=== PATIENT | female | born 2000 | race Caucasian/White ===

== ENCOUNTER 2020-03-02 19:17 | Emergency (ER) | payer OTHER, MEDICAID, SELFPAY ==
--- NOTE | ~2020-03-02 | XR_ITS ---
EXAMINATION: XR foot LT min 3V EXAM DATE: 03/02/2020 19:48 INDICATION: Initial encounter following injury, with pain of the left foot. Tripped. TECHNIQUE: Left foot dorsoplantar, lateral and oblique projections obtained and reviewed. There is n o prior study for comparison. FINDINGS: There is lucency through the base of the left fifth metatarsal bone which could be an acut e closed posttraumatic avulsion type fracture. This finding has been indicated, marked on the examina tion for review, clinical correlation. There is overlying soft tissue swelling. No other suspicious f indings. IMPRESSION: Probable left fifth metatarsal base nondisplaced avulsion fracture. Reviewed, dictated and finalized at location G. IMPRESSION: Probable left fifth metatarsal base nondisplaced avulsion fracture .
[2020-03-02 19:19] VITALS: BP 154/87; PULSE 106; RESP 18; TEMP 36.2; O2SAT 100
--- NOTE | 2020-03-02 19:34 | ED.LOWEXIN ---
HPI - Extremity Injury (Lower) General Chief Complaint: Extremity Injury, Lower Stated Complaint: L Foot Time Seen by Provider: 03/02/20 19:23 Source: patient Mode of arrival: wheelchair Limitations: no limitations History of Present Illness HPI Narrative: Patient is a 19-year-old female who presents for evaluation of left foot pain. Patient states she was [id number] when she tripped over a rock, falling and landing on her left foot tucked under her bottom. Patient with immediate pain on the lateral aspect of the left foot at a place where she has previously broken a bone in her foot. Patient denies numbness. She reports inability to bear weight due to pain. Pain is dull, aching in nature, worse with movement. No toe pain. No knee pain or hip pain. No head trauma or loss of consciousness. Related Data Home Medications Medication Instructions Recorded Confirmed sertraline [Zoloft] 20 mg PO DAILY 03/02/20 Allergies Allergy/AdvReac Type Severity Reaction Status Date / Time ondansetron [From Zofran] AdvReac Nausea and Verified 03/02/20 19:25 Vomiting Review of Systems Review of Systems: Narrative: CONSTITUTIONAL: Denies fever CARDIOVASCULAR: Denies chest pain RESPIRATORY: Denies cough or dyspnea. GASTROINTESTINAL: Denies abdominal pain SKIN: Abrasion to right knee MUSCULOSKELETAL: Denies back pain, reports left foot pain NEUROLOGIC: Denies headache PMFSH Past Medical History Medical History (Updated 03/03/20 @ 00:00 by Background Daemon) No pertinent past medical history Surgical History Surgical History (Updated 03/02/20 @ 19:36 by Lisbeth Julio MD) H/O anterior cruciate ligament surgery Social History Social History (Updated 03/02/20 @ 19:37 by Lisbeth Julio MD) Smoking status: Never smoker Alcohol intake: never Substance use: never Living arrangements: with family Gender identity (if verbalized by the patient): Female Exam Narrative: Exam Narrative: GENERAL: Awake, alert, conversant HEAD: Normocephalic, atraumatic. EYES: PERRLA and EOMI. ENT: Nares clear, no rhinorrhea or epistaxis. Mucous membranes moist. NECK: Supple. CHEST: No respiratory distress, breathing even and non labored HEART: Regular rate, sinus rhythm ABDOMEN:Non distended, non tender EXTREMITIES: Normal range of motion in the ankle and forefoot. Tenderness to palpation of the lateral aspect of the fifth metatarsal with deformity present. No ecchymosis. DP pulse 2+. SKIN: Warm, dry, no rash. NEURO:No focal deficits. Alert and oriented x3 Course Vital Signs Vital signs: Vital Signs Temperature 36.2 C L 03/02/20 19:19 Pulse Rate 106 H 03/02/20 19:19 Respiratory Rate 18 03/02/20 19:19 Blood Pressure 154/87 H 03/02/20 19:19 Pulse Oximetry 100 03/02/20 19:19 Temperature 36.2 C L 03/02/20 19:19 Pulse Rate 72 03/02/20 20:31 Respiratory Rate 18 03/02/20 20:31 Blood Pressure 122/77 03/02/20 20:31 Pulse Oximetry 98 03/02/20 20:31 Procedures Orthopedic Splinting/Casting Injury #1: Splinting/Casting Date: 03/02/20 Splinting/Casting Time: 20:02 Side: left Lower Extremity Injury Location: foot Lower Extremity Immobilizer: posterior splint Splint: customized in ED OCL: posterior Pre-Procedure Neuro Vascular Exam: normal Post-Procedure Neuro Vascular Exam: normal Other Orthopedic Equipment: crutches MDM - Extremity Injury (Lower) MDM Narrative Medical decision making narrative: Patient presented with pain and trauma to the left foot, mild deformity, neurovascularly intact. Compartments are soft. Patient found to have a left fifth metatarsal base fracture on imaging. Patient will be splinted given degree of pain, want patient to remain nonweightbearing. She was given crutches. She is given prescriptions for ibuprofen, Tylenol and orthopedic follow-up. She was then discharged home in stable conditio
--- NOTE | 2020-03-02 20:24 | PC.NURSE ---
OCL applied per pet care technician. Pt tolerated well. PMS intact.
[2020-03-02] MEDS: IBUPROFEN 400 MG TABLET PO (20:28)
[2020-03-02 20:31] VITALS: BP 122/77; PULSE 72; RESP 18; O2SAT 98
== END 2020-03-02 20:32 | disposition home or self-care (01) ==
PROVIDERS: Emergency Provider Emergency Medicine
DX: S92.355A Nondisplaced fracture of fifth metatarsal bone, left foot, initial encounter for closed fracture (principal); W18.09XA Striking against other object with subsequent fall, initial encounter; Y93.73 Activity, racquet and hand sports
CPT/HCPCS: 29515; 73630; 99284; A9270

== ENCOUNTER 2020-08-05 17:09 | Emergency (ER) | payer OTHER, MEDICAID, SELFPAY ==
--- NOTE | ~2020-08-05 | XR_ITS ---
EXAMINATION: XR knee RT min 4V EXAM DATE: 08/05/2020 18:04 INDICATION: Right knee pain medially. TECHNIQUE: Right knee frontal, crosstable lateral, orthogonal oblique projections for interpretation . There is no prior study for comparison. FINDINGS: No evidence osteochondral defect or joint body in the right knee joint. There are no acut e fractures or dislocations identified. There is no subcutaneous gas. There is small joint effusion . There are surgical changes from prior cruciate ligament repair. IMPRESSION: 1. Right knee exam without acute osseous findings. 2. Small joint effusion. 3. Prior cruciate ligament repair. Reviewed, dictated and finalized at location A.
[2020-08-05 17:25] VITALS: BP 140/80; PULSE 103; RESP 18; TEMP 36.4; O2SAT 99
--- NOTE | 2020-08-05 18:26 | ED.GENADULT ---
HPI - General Adult General Chief complaint: Extremity Injury, Lower <Jr Villela PA-C - Last Filed: 08/05/20 18:30> Stated complaint: right knee injury <Jr Villela PA-C - Last Filed: 08/05/20 18:30> Time Seen by Provider: 08/05/20 17:39 <Jr Villela PA-C - Last Filed: 08/05/20 18:30> Source: patient <Jr Villela PA-C - Last Filed: 08/05/20 18:30> Mode of arrival: ambulatory <Jr Villela PA-C - Last Filed: 08/05/20 18:30> Limitations: no limitations <Jr Villela PA-C - Last Filed: 08/05/20 18:30> History of Present Illness HPI narrative: Patient is a 20-year-old female who presents to emergency department with right medial knee pain status post twisting the knee awkwardly this week and has since had medial aching pain worse with weightbearing and activity history of orthopedic surgery in this knee patient has not been seen for this complaint <Jr Villela PA-C - Last Filed: 08/05/20 18:30> Related Data Allergies/adverse reactions: Allergies Allergy/AdvReac Type Severity Reaction Status Date / Time ondansetron [From Zofran] AdvReac Nausea and Verified 08/05/20 17:38 Vomiting <Jr Villela PA-C - Last Filed: 08/05/20 18:30> Review of Systems Review of Systems: All systems reviewed & are unremarkable except as noted in HPI and below <Jr Villela PA-C - Last Filed: 08/05/20 18:30> [facility] Past Medical History Medical History: Medical History (Updated 08/05/20 @ 18:30 by Jr Villela PA-C) No pertinent past medical history Right ACL tear <Jr Villela PA-C - Last Filed: 08/05/20 18:30> Surgical History Surgical History: Surgical History H/O anterior cruciate ligament surgery <Jr Villela PA-C - Last Filed: 08/05/20 18:30> Family History Family History: Family History Father Cancer Grandparent Cancer Hypertension <Jr Villela PA-C - Last Filed: 08/05/20 18:30> Social History Social History: Social History Smoking status: Never smoker Alcohol intake: never Substance use: never Gender identity (if verbalized by the patient): Female <Jr Villela PA-C - Last Filed: 08/05/20 18:30> Exam Narrative: Exam Narrative: GENERAL: Well-appearing, well-nourished, and in no acute distress. HEAD: Normocephalic, atraumatic. EYES: PERRLA and EOMI. ENT: Nares clear, no rhinorrhea or epistaxis. Mucous membranes moist. EXTREMITIES: Normal range of motion. No edema. Tenderness to the anterior medial aspect right knee no other deformities noted SKIN: Warm, dry, no rash. NEURO: No focal deficits. Alert and oriented x3. Neurovascularly intact PSYCH: Normal mood and affect. <Jr Villela PA-C - Last Filed: 08/05/20 18:30> Course Course Emergency Course: Patient in the room in no distress at this time aware of case findings treatment plan and diagnosis agreeing to follow-up as directed will be referred to orthopedic surgery for further evaluation patient notes that she has crutches at home <Jr Villela PA-C - Last Filed: 08/05/20 18:30> Vital Signs Vital signs: Vital Signs Temperature 36.4 C 08/05/20 17:25 Pulse Rate 103 H 08/05/20 17:25 Respiratory Rate 18 08/05/20 17:25 Blood Pressure 140/80 08/05/20 17:25 Pulse Oximetry 99 08/05/20 17:25 Temperature 36.4 C 08/05/20 17:25 Pulse Rate 103 H 08/05/20 17:25 Respiratory Rate 18 08/05/20 17:25 Blood Pressure 140/80 08/05/20 17:25 Pulse Oximetry 99 08/05/20 17:25 <Jr Villela PA-C - Last Filed: 08/05/20 18:30> Vital Signs Temperature 36.4 C 08/05/20 17:25 Pulse Rate 103 H 08/05/20 17:25 Respiratory Rate 18 08/05/20 17:25 Blood Pressure 140/80 08/05/20 17:25 P
--- NOTE | 2020-08-05 18:45 | PC.NURSE ---
pt refused crutches. has pair at home
== END 2020-08-05 18:49 | disposition home or self-care (01) ==
PROVIDERS: Emergency Provider Emergency Medicine
DX: M25.561 Pain in right knee (principal)
CPT/HCPCS: 73564; 99283

== ENCOUNTER 2023-11-10 08:17 | Emergency (ER) | payer OTHER, SELFPAY ==
--- NOTE | 2023-11-10 08:36 | ED.URI ---
HPI - URI/Sore Throat General Chief Complaint: Upper Respiratory Infection Stated Complaint: sore throat Time Seen by Provider: 11/10/23 08:42 Source: patient Mode of arrival: ambulatory Limitations: no limitations History of Present Illness HPI Narrative: Diamond is a 23-year-old female patient presenting to the clinic today with complaints of a sore throat x2 days. She reports no known fever or chills. States she had COVID back on October 27. MD elicited complaint: sore throat and nasal congestion Related Data Allergies Allergy/AdvReac Type Severity Reaction Status Date / Time ondansetron [From Zofran] AdvReac Nausea and Verified 11/10/23 08:41 Vomiting Review of Systems Review of Systems: Pertinent positives per HPI. Patient denies any fever, chills, rash, headache, visual changes, dizziness, cough, shortness of breath, chest pain, palpitations, nausea, vomiting, diarrhea, constipation, abdominal pain, or any urinary issues. PMFSH Past Medical History Medical History BMI 27.0-27.9,adult BMI 29.0-29.9,adult No pertinent past medical history Right ACL tear Surgical History Surgical History H/O anterior cruciate ligament surgery first one in 2015 - central third patellar tendon revision in 2017 - hamstrings Family History Family History Father Cancer Grandparent Cancer Hypertension Social History Social History Smoking status: Never smoker Alcohol intake: never Substance use: never Living arrangements: with family Gender identity (if verbalized by the patient): Female Comments At the time of my signature, I reviewed and agree with the nursing past medical, surgical, social, and family history. There is no relevant family history pertinent to the patient complaint. Exam Narrative: General: Well-developed, well nourished, in no apparent distress Head: Normocephalic, atraumatic Eyes: Pupils equally round and reactive to light bilaterally, EOM intact, sclera and conjunctive clear, no discharge, lids normal Ears: TMs intact and clear, ear canals clear, no drainage, grossly hearing normal. Nose: Nares patent, clear discharge, no inflammation, no sinus tenderness. Mouth: Oral pharynx red without lesions or masses, good dentition, MMM. Neck: Supple, trachea midline, no enlargement of anterior or posterior cervical nodes, no thyroid masses or goiter palpable. Cardio: Regular rate and rhythm, s1 and s2 normal, no murmur appreciated. Resp: Clear to auscultation bilaterally, no rhonchi, rales, wheezing or rubs Course Course Emergency Course: Portions of this record may have been created with voice recognition software. Level of Care: Express Care Visit Vital Signs Vital signs: Vital signs reviewed MDM - URI/Sore Throat MDM Narrative Medical decision making narrative: At the time of visit patient is resting comfortably on the exam table. Patient appears to be nontoxic. Strep test was performed supportive measures were discussed with the patient and they voiced understanding discharge instructions and agrees to treatment plan. Return precautions reviewed Differential Diagnosis Differential diagnosis: Likely upper respiratory infection, otitis media, sinusitis, viral infection, bronchitis, influenza, pharyngitis and other (COVID) Discharge Plan Discharge Clinical Impression: Pharyngitis Patient Disposition: Home, Self-Care Condition: Stable Instructions: Antibiotic Form, Pharyngitis (ED) Additional Instructions: Strep test was negative in the clinic today. We will send for culture if this comes back positive we will contact you and place you on antibiotics at that time Increase fluids and stay well hydrated Tylenol/motrin
[2023-11-10 08:39] VITALS: BP 137/84; PULSE 90; RESP 16; TEMP 36.7; O2SAT 100
== END 2023-11-10 09:08 | disposition home or self-care (01) ==
PROVIDERS: Emergency Provider Nurse Practitioner Family
DX: J02.0 Streptococcal pharyngitis (principal); B95.0 Streptococcus, group A, as the cause of diseases classified elsewhere
CPT/HCPCS: 87081; 87147; 87880; 99213; G0463

== ENCOUNTER 2024-05-24 08:10 | Outpatient (CLI) | payer OTHER, SELFPAY ==
--- NOTE | ~2024-05-24 | US_ITS ---
EXAMINATION: US OB transvaginal DATE: 05/24/2024 08:34 INDICATION: Recurrent loss. TECHNIQUE: Real-time transvaginal pelvic ultrasound was performed. COMPARISON: None. FINDINGS: The uterus measures 9.8 x 4.9 x 5.5 cm. There is an intrauterine gestational sac. A yolk sac is ident ified. The crown rump length measures 3 mm, which correlates with an estimated gestational age of 5 weeks and 6 day(s) (+/-) 4 day(s). heart motion is identified measuring 102 beats per min felicity (bpm) by M-mode Doppler. There is a small subchronic hematoma. The right ovary measures 3.3 x 1.7 x 3.9 cm. The left ovary measures 2.8 x 1.7 x 2.7 cm. There is no free fluid in the pelvis. IMPRESSION: 1. Single living intrauterine gestation with estimated date of delivery of 01/18/2025. 2. Small subchorionic hematoma. Reviewed, dictated and finalized at location A. IMPRESSION: 1. Single living intrauterine gestation with estimated date of delivery of 12/23. 2. Small subchorionic hematoma.
== END 2024-05-24 08:11 ==
PROVIDERS: PCP Nurse Practitioner Women's Health; Visit Provider Nurse Practitioner Women's Health
DX: O26.21 Pregnancy care for patient with recurrent pregnancy loss, first trimester (principal); Z3A.00 Weeks of gestation of pregnancy not specified
CPT/HCPCS: 76817

== ENCOUNTER 2024-06-26 08:38 | Outpatient (CLI) | payer OTHER, SELFPAY ==
--- NOTE | ~2024-06-26 | US_ITS ---
US OB limited 06/26/2024 09:08 Indication: Subchorionic hematoma Procedure: High-resolution Limited obstetrical ultrasound Comparison: Ultrasound dated 05/24/2024 Findings: There is a single living intrauterine with heart rate of 168 BPM. Small sub chorionic hematoma measures 2.2 x 1.4 x 1.2 cm at the fundus. Yolk sac is present. Impression: 1: Single living intrauterine with heart rate of 168 BPM. 2: Small subchorionic hematoma measuring 2.2 x 1.4 x 1.2 cm. Reviewed, dictated and finalized at location B. Impression: 1: Single living intrauterine with heart rate of 168 BPM. 2: Small subchorionic hematoma measuring 2.2 x 1.4 x 1.2 cm.
== END 2024-06-26 08:39 | disposition home or self-care (01) ==
PROVIDERS: PCP Obstetrics & Gynecology Gynecology; Visit Provider Obstetrics & Gynecology Gynecology
DX: O36.8910 Maternal care for other specified fetal problems, first trimester, not applicable or unspecified (principal); O99.411 Diseases of the circulatory system complicating pregnancy, first trimester; I62.00 Nontraumatic subdural hemorrhage, unspecified
CPT/HCPCS: 76815

== ENCOUNTER 2024-07-18 12:47 | Outpatient (CLI) | payer OTHER, SELFPAY ==
--- NOTE | ~2024-07-18 | US_ITS ---
EXAMINATION: US OB limited DATE: 07/18/2024 13:07 INDICATION: Subchorionic hematoma TECHNIQUE: Real-time ultrasound of the pelvis was performed. The interpreting radiologist was not pre sent for the study. COMPARISON: 06/26/2024 FINDINGS: The uterus measures 16.0 x 9.2 x 11.9 cm. There is a single living fetus. The placenta is posterior. Decrease in size of a small subchorionic hematoma along the right side of the placenta which previou sly measured 2.2 x 1.4 x 1.2 cm and currently measures 8 x 7 x 8 mm. heart rate is 115 beats pe r minute (bpm). The amniotic fluid volume is subjectively normal. The ovaries are not visualized. IMPRESSION: 1. Single living fetus with heart rate of 115 bpm. 2. Decreased size of a now 8 x 8 x 7 mm subchorionic hematoma. Reviewed, dictated and finalized at location A.
== END 2024-07-18 12:48 | disposition home or self-care (01) ==
LOC: MICIMG 12:47
PROVIDERS: PCP Obstetrics & Gynecology Gynecology; Visit Provider Obstetrics & Gynecology Gynecology
DX: O36.8910 Maternal care for other specified fetal problems, first trimester, not applicable or unspecified (principal); Z3A.00 Weeks of gestation of pregnancy not specified
CPT/HCPCS: 76815

== ENCOUNTER 2024-08-03 08:18 | Outpatient (CLI) | payer OTHER, SELFPAY ==
--- NOTE | ~2024-08-03 | US_ITS ---
EXAMINATION: US OB limited DATE: 08/03/2024 08:38 INDICATION: Subchronic hematoma in the first trimester. TECHNIQUE: Real-time ultrasound of the pelvis was performed. COMPARISON: Ultrasound 07/18/2024 FINDINGS: There is a single fetus in vertex presentation. The placenta is posterior. heart rate is 153 b eats per minute (bpm). The amniotic fluid volume is subjectively normal. IMPRESSION: 1. Single living fetus in vertex presentation. 2. No subchronic hematoma. Reviewed, dictated and finalized at location A.
== END 2024-08-03 08:19 | disposition home or self-care (01) ==
LOC: MICIMG 08:19
PROVIDERS: PCP Obstetrics & Gynecology Gynecology; Visit Provider Obstetrics & Gynecology Gynecology
DX: O36.8910 Maternal care for other specified fetal problems, first trimester, not applicable or unspecified (principal); Z3A.00 Weeks of gestation of pregnancy not specified
CPT/HCPCS: 76815

== ENCOUNTER 2024-09-29 21:11 | Observation (INO) | payer OTHER, SELFPAY ==
[2024-09-29 21:39] VITALS: BP 128/78; PULSE 97
[2024-09-29 21:46] VITALS: BP 121/74; PULSE 94
[2024-09-29 21:47] VITALS: BMI 31.6
--- NOTE | 2024-09-29 21:47 | OBADM ---
This patient, Bridgett Sam, admitted to the OB room OB Post [facility] for observation. Patient/family oriented to hospital policies and general routines including ID bracelet, bed and alarms, visiting hours, pain management, procedures, bathroom and other care routines, personal items, smoking policy, room service/diet, and visiting hours. Patient/Family are encouraged to report perceived risks to care and to ask questions if they do not understand what they are told or what they should do.
[2024-09-29 22:01] VITALS: BP 120/74; PULSE 90
[2024-09-29 22:16] VITALS: BP 121/76; PULSE 88
[2024-09-29 22:30] LABS: Add Urine Microscopic? YES; Appearance Urine Clear (Clear); Bacteria Urine None Seen /hpf; Bilirubin Urine Negative (Negative); Blood Urine Negative (Negative); Color Urine Yellow (Yellow); Glucose Urine UA Negative (Negative); Ketones Urine Trace mg/dL (Negative); Leukocyte Esterase Ur Trace LEU/UL (Negative); Nitrate Urine Negative (Negative); Non Pathogenic Casts 0-2; Protein Urine Negative (Negative); RBC Urine 0-2 /hpf (0-2); Squamous Epithelial Cell Urine None Seen /hpf (Few); WBC Urine 0-5 /hpf (0-3)
[2024-09-29 22:31] VITALS: BP 115/75; PULSE 87
--- NOTE | 2024-09-29 22:54 | PC.NURSE ---
Pt discharged home undelivered in stable condition per order from Dr. Carver. Discharge instructions provided and reviewed with pt. All questions and concerns answered. Pt ambulated out of department with all belongings, S.O @ pt side.
--- NOTE | 2024-11-02 11:05 | P.PNOB_ITS ---
OB - Triage/Final Diagnosis Visit Information Comments/Additional reasons for admission: I have assessed the risk for this patient, Bridgett Sam, and determined that she would benefit from observation care. Evaluation Laboratory results: Laboratory Tests 09/29/24 22:18 Urine Color Yellow Urine Appearance Clear Urine pH 7.0 Ur Specific [place] 1.010 Urine Protein Negative Urine Glucose (UA) Negative Urine Ketones Trace H Ur Blood (Man) Negative Urine Nitrate Negative Urine Bilirubin Negative Urine Urobilinogen 1.0 Leukocyte Esterase Rfl Trace H Urine RBC 0-2 Urine WBC 0-5 Ur Squamous Epith Cells None seen Urine Bacteria None seen Urine Casts 0-2 Final Diagnosis (1) False labor: Code(s): O47.9 - False labor, unspecified Status: Acute
== END 2024-09-29 22:55 | disposition home or self-care (01) ==
PROVIDERS: Admitting Provider Obstetrics & Gynecology; PCP Obstetrics & Gynecology Gynecology; Visit Provider Obstetrics & Gynecology
DX: O47.02 False labor before 37 completed weeks of gestation, second trimester (principal); Z3A.24 24 weeks gestation of pregnancy
CPT/HCPCS: 81001; G0378; G0379

== ENCOUNTER 2024-11-21 09:50 | Outpatient (CLI) | payer OTHER, SELFPAY ==
[2024-11-21] VITALS (7 sets, daily range): BP systolic 119–132; BP diastolic 68–82; PULSE 97–108; BMI 32.0
[2024-11-21 10:45] LABS: Basophils Percent Auto 0.3 % (0.2-1.2); Eosinophils Absolute Auto 0.1 K/mm3 (0-0.3); Eosinophils Percent Auto 0.5 % (0-4.4); Hematocrit 31.5 % (37.0-47.0); Hemoglobin 10.4 g/dL (12.0-15.0); Immature Granulocyte Absolute 0.05 K/mm3 (0.00-0.031); Immature Granulocyte Percent A 0.5 % (0-0.5); Lymphocytes Absolute Auto 1.82 K/mm3 (0.9-3.2); Lymphocytes Percent Auto 18.2 % (18.3-44.2); Mean Corpuscular Hemoglobin 27.7 pg (26-34); Mean Platelet Volume 10.4 fl (7.4-10.4); Monocytes Absolute Auto 0.6 K/mm3 (0.1-0.6); Monocytes Percent Auto 6.3 % (2.6-8.5); Neutrophils Absolute Auto 7.4 K/mm3 (1.3-6.7); Neutrophils Percent Auto 74.2 % (45.5-73.1); Platelet Count Result 229 k/mm3 (150-375); Red Blood Count 3.75 M/mm3 (4.2-5.4); Red Cell Distribution Width 12.7 % (11.5-14.5)
--- OUTSIDE RECORDS SUMMARY | 2024-11-21 10:47 | XMS_ITS | Clinical Summary ---
Author Organization [facility] Address [address] [place] [id number] Care Team Providers Care Last Remodeler Repairer Name Role Phone Liborio Shea NP Primary Care Provider Antonio Ortiz MD Unavailable [phone] Myriam Whaley [facility] Unavailable [phone] Sal Ferraro MD Unavailable Allergies Active Allergy Reactions Criticality Noted Date Comments Adhesive Rash,Blisters High 09/14/2019 Ondansetron Nausea only Low Makes nausea worse Ondansetron Hcl Other (See comments) Low Reaction: HEADACHE; worsening nausea Pollen Extracts Cough,Rhinorrhea Low 10/08/2020 Medications methIMAzole (TAPAZOLE) 10 mg tabletIndicatio ns:Graves disease Take 2 tablets (20 mg total) by mouth 2 (two) times a day 360 tablet 04/01/2022 Active Active Problems Problem Noted Date Diagnosed Date Graves disease 12/01/2021 Assessment & Plan (04/18/2022 3:12 PM CDT): Reviewed patient recent thyroid lab results Uncontrolled, worsening hyperthyroidism Stop PTU Start methimazole 20 mg oral twice a day Recheck thyroid function test in 4 weeks Follow-up as scheduled Strongly advised patient to avoid until her hyperthyroidism stabilizes Assessment & Plan (01/29/2022 11:16 AM CDT): Pt under the care of endocrinology - symptoms well controlled Assessment & Plan (01/29/2022 9:09 AM CDT): Patient recently had a miscarriage She is planning to get soon again Continue propylthiouracil for now Patient currently on propylthiouracil 100 mg oral 3 times daily Check labs today and every 4 weeks and further adjust the dose accordingly Patient denied [id number] DONG therapy Assessment & Plan (12/29/2021 1:12 PM TUBE SIZER AND CUTTER OPERATOR): Patient diagnosed with hyperthyroidism 03/2021 most likely due to Graves disease - patient is 10 weeks now - patient is asymptomatic currently except mild nausea - reviewed recent thyroid function test, worsening hyperthyroidism ( patient skip taking few days of PTU ) - today heart rate is high, patient states that her heart rate has been well controlled every day except today - advised patient to update with her vitals tomorrow - increase propylthiouracil 100 mg oral t.i.d. - thyroid function test from yesterday showed suppressed TSH, elevated free T4 and T3 levels - Recheck thyroid function test next week - advised patient to make an appointment with highway truck driver - follow-up in 4 weeks Assessment & Plan (12/01/2021 8:36 AM TUBE SIZER AND CUTTER OPERATOR): Patient diagnosed with hyperthyroidism 03/2021 most likely due to Graves disease Was treated with oral atenolol methimazole - stopped since 11/14/2021 - on positive - patient is 6 weeks now - patient is asymptomatic currently except mild nausea - discussed about treatment options of Graves disease during - - thyroid function test from yesterday showed suppressed TSH, normal free T4 and T3 levels - defer starting any antithyroid medications at this time And check thyroid function test every week for next 4 weeks - advised patient to make an appointment with highway truck driver - follow-up in 4 weeks Hyperthyroidism 05/20/2021 Assessment & Plan (07/28/2021 9:15 AM CDT): Reviewed patient recent thyroid lab results Patient still hyperthyroid, worsening Advised to increase methimazole to 30 mg oral daily Also increase atenolol to 50 mg oral daily Also discussed with patient regarding radioactive ablation therapy Patient said that she will discuss with her and let me know Repeat thyroid function labs every 2 months ( sooner if patient feeling any different ) Follow-up in 2 months Assessment & Plan (05/20/2021 4:22 PM CDT): Hyperthyroidism diagnosed at least since 04/21/2021\ Patient currently on methimazole 10 mg oral daily Reviewed patient thyroid function lab results from 04/21/2021, patient has significant elevation in her free T3 levels Recommend to increase her methimazole to 20 mg oral daily Start atenolol 25 mg oral daily for symptom control - most likely patient has hyperthyroidism due to Graves disease versus thyroiditis - thyroid ultrasound done - showed diffuse hypervascularity and diffuse enlarged - repeat thyroid function test in 2 months, include thyroid antibodies - also discuss with patient regarding other treatment options for hyperthyroidism that include radioactive ablation therapy versus surgery - patient willing to continue oral methimazole at this time - strongly advise contraception - if patient gets advised to stop methimazole and call me back - follow-up in 2 months ACL graft tear, subsequent encounter 09/16/2020 Overview (09/16/2020): Added automatically from request for surgery [id number] Gestational hypertension affecting second pregna ncy 09/13/2019 Anemia complicating 07/09/2019 Resolved Problems Problem Noted Date Diagnosed Date Resolved Date Presence of intrauterine contraceptive device 02/09/20 17 07/31/2021 Overview (03/18/2017): Contraceptive IUD in situ Immunizations Name Administration Dates Next Due DTaP 02/11/2005, 0,01/04/2000,11/02,1999 DTaP / HiB / IPV 1999 Flucelvax Influenza Quad 07/27/2019 HPV, Unspecified 03/22/2012,12/20/2011 HPV9 12/20/2011 Hep A, Pediatric 05/25/2013,03/22/2012 Hep B / HiB 1999 Hep B, Adolescent or Pediatric 10/10/2000,1999,01/04/2000 HiB 10/10/2000,01/04/2000,1999 IPV 02/11/2005,07/11/2000,1999 Influenza, Quadrivalent, Christin l Culture-based MDCK, Preservative Free, Antibiotic Free, Intramuscular 07/27/2019 Influenza, Quadrivalent, Spl it, Preservative Free, Intramuscular 07/21/2020,09/25/2018 Influenza, Unspecified 07/31/2021(Deferr ed: Patient decision),07/24/2016 MMR 02/11/2005,07/11/2000 Meningococcal C/Y-HIB PRP 07/26/2017 Meningococcal Polysaccharide (Menomune) 12/20/2011 Pfizer SARS-CoV-2 Monovalent Vaccination (12+ Yrs) PURPLE 01/17/2021,12/25/2020 Tdap 09/07/2019,10/26/2016,12/20/2011 Varicella 02/23/2012,03/28/2002 Surgical History Surgery Date Site/Laterality Comments KNEE SURGERY right knee surgery x 2 / had right knee in Oct 2020 VAGINAL DELIVERY 2016 DILATION AND CURETTAGE OF UTERUS Medical History Medical History Date Comments Hx Other Medical knee surgery; C omments: [facility] 04/30/2016 -; Laterality: right Seasonal allergies Allergies, se asonal; Comments: [facility] 04/30/2016 - Allergic ACL graft tear, subsequent encounter 09/16/2020 Added automatically from request for surgery [id number] Presence of intrauterine con traceptive device 02/08/2017 Contraceptive IUD in situ Syncope and collapse 12/2015 normal EKG and echo 12/23/2015 Hyperthyroidism Graves disease Family History Medical History Relation Name Comments Melanoma Father Melanoma; Cause of : Melanoma Pancreatic cancer Maternal Grandfather Other Mother Alive and well; Diabetes Other 1 Diabetes mellit ; Hypertension Other 2 Hypertension; Thyroid cancer Paternal Grandmother Relation Name Status Comments Father Maternal Grandfather Mother Alive Other 1 Other 2 Paternal Grandmother Social History Tobacco Use Types Packs/Day Years Used Date Smoking Tobacco: Never Smokeless Tobacco: Never Alcohol Use Standard Drinks/Week Comments No 0 (1 standard drink = 0.6 oz pur e alcohol) AUDIT-C Answer Date Recorded Q1: How often do you have a drink containing alc ohol? 2-4 times a month 04/01/2022 Q2: How many drinks containi ng alcohol do you have on a typical day when you are drinking? 3 or 4 04/01/2022 Q3: How often do you have si x or more drinks on one occasion? Less than monthly 04/01/2022 PHQ-2 Answer Date Recorded PHQ-2 Total Score (If total score is 3 or more points, staff should administer the PHQ-9) 0 04/01/2022 Comments No Sex and Gender Information Value Date Recorded Sex Assigned at Not on file Legal Sex Female 4:08 AM TUBE SIZER AND CUTTER OPERATOR Gender Identity Female 05/20/2021 11:53 AM CDT Sexual Orientation Straight 05/20/2021 11 :53 AM CDT Obstetrics History Para Term AB IAB SAB Ectopic Multiple Livin g Live Births 1 Date Outcome GA Total Labor Labor/2nd/3rd Weight Sex Type Anes PTL Alena A1 A5 Name Clin Last Filed Vital Signs Vital Sign Reading Time Taken Comments Blood Pressure 110/80 04/01/2022 10:31 AM CDT Pulse 83 04/01/2022 10:31 AM CDT Temperature 37.1 ??C (98.8 ??F) 01/29/2022 6:55 AM CD T Respiratory Rate 18 04/01/2022 10:3 1 AM CDT Oxygen Saturation 97% 01/29/2022 6:55 AM CDT Inhaled Oxygen Concentration - - Weight 83.8 kg (184 lb 12.8 oz) 022 10:31 AM CDT Height 165.1 cm (5' 5 ) 04/01/2022 10:3 1 AM CDT Body Mass Index 30.75 04/01/2022 10:31 AM CDT Plan of Treatment Health Maintenance Due Date Last Done Comments Cervical Cancer Screening 1999 HPV Vaccines (3 - 3-dose series) 06/19/2012 03/22/2012, 12/20/2011, 12/20/2011 Regular Well Visit/Exam 18-64 07/31/2022 07/31/2021, 07/31/2021 Depression Screening 04/01/2023 04/01/2022, 12/29/2021, 12/01/2021, Additional history exists Covid-19 Vaccine ( season) 2024 01/17/2021, 12/25/2020 Influenza Vaccine (#1) 2024 , 07/27/2019, 07/27/2019, Additional history exists DTaP/Tdap/Td Vaccine (9 - Td or Tdap) 09/07/2029 09/07/2019, 10/26/2016, 12/20/2011, Additional history exists Varicella Vaccines Completed 02/23/2012, 03/28/2002 Hepatitis C Screening Completed 06/24/2016 Pneumococcal vaccine <65 Aged Out No longer eligible based on patient's age to complete this topic Medical Devices Implanted Type Area Water Quality Specialist Device Identifier Shelf Expiration Date Model / Serial / Lot Allosync Dimineralized Bone Matrix Implanted:Qty: 1 on 10/29/2020 by Terry Hickey MD at [facility] Right: Knee [employer] [id number] 03/20/2022 / [id number] / [id number] Description:8 mL CB DBM past e Allosync Demineralized Bone Matrix Ref Abs-2014-10 Implanted:Qty: 1 on 10/29/2020 by Terry Hickey MD at [facility] Right: Knee [employer] [id number] 05/20/2022 / [id number] / [id number] Description:allosync CB DBM putty Procedures Procedure Name Priority Date/Time Associated Diagnosis Comments SERUM HEPATITIS C AB Routine 06/24/2016 9:59 AM CDT from Last 3 Months or Most Recently Relevant to Health Maintenance Results * Serum Hepatitis C ab (06/24/2016 9:59 AM CDT) HCV ab Negative NEG CDR HISTOR ICAL RESULTS Serum 06/24/2016 9:59 AM CDT Narrative CDR HISTORICAL RESULTS - 06/25/2016 6:12 AM CDT Interpretive Data Positive results should be confirmed by a molecular method. If positive, a second separately collected sample should be submitted for Hepatitis C Virus (HCV) RNA Detection and Quantitation by Real-Time Reverse Regulatory Consultant-PCR (RT-PCR). Current interpretive data was last revised on 2016. Mariola Yoder MD LAB BLOOD ORDERAB LES Final Result CDR HISTORICAL RESULTS from Last 3 Months or Most Recently Relevant to Health Maintenance Insurance [facility] CHO[facility] PLUS [facility] CHO[facility] PLUS [facility] CHOICE PLUS ID[employer] Advance Directives For more information, please contact: [phone] Documents on File Type Date Recorded Patient Explosion Welder Expl anation ADVANCE DIRECTIVE 10/29/2020 11:53 AM Care Teams Last Remodeler Repairer Relationship Specialty [place] [address] [address] PCP - General Family Medicine 09/05/19 [place] [address], [place] [address] Consulting Physician Endocrinology 12/29/21 Myriam Whaley CNM [address] [address], [place] [address] Nurse Practitioner Obstetrics and Gynecology 12/29/21 Sal Ferraro MD [address] [place] [address] Consulting Physician Internal Medicine 01/19/22
--- OUTSIDE RECORDS SUMMARY | 2024-11-21 10:47 | XMS_ITS | Encounter Summary ---
Author Organization [facility] Address [address] [facility] [address] [place] [address] Care Team Providers Care Longwall Shearer Operator Name Role Phone Liborio Shea BREAD PANNER Primary Care Provider [phone] Mariola Yoder MD Primary Care Pro vider Liborio Shea BREAD PANNER Primary Care Provider [phone] Mariola Yoder MD Primary Care Pro vider No, Physician Primary Care Provider [phone] Liborio Shea BREAD PANNER Primary Care Provider [phone] Antonio Ortiz MD Unavailable [phone] Myriam Whaley [facility] Unavailable [phone] Sal Ferraro MD Unavailable [phone] Encounter Details Date Type Department Care Team (Latest Contact Info) Description 02/08/2017 Orders Only [place] BRIQUETTE OPERATOR Provider, MD Dejuan [address] [place] [address] Social History Tobacco Use Types Packs/Day Years Used Date Smoking Tobacco: Never Alcohol Use Standard Drinks/Week Comments No 0 (1 standard drink = 0.6 oz pur e alcohol) Comments Unknown Sex and Gender Information Value Date Recorded Sex Assigned at Not on file Legal Sex Female 4:08 AM MOTION PICTURE EQUIPMENT SUPERVISOR Gender Identity Female 05/20/2021 11:53 AM CDT Sexual Orientation Straight 05/20/2021 11 :53 AM CDT documented as of this encounter Plan of Treatment Not on file documented as of this encounter Visit Diagnoses Not on filedocumented in this encounter Additional Health Concerns Infection Onset Date Last Indicated Resolved Time COVID: Suspected 07/07/2021 07/07/2021 07/07/2021 2:37 PM CDT documented as of this encounter Care Teams Longwall Shearer Operator Relationship Specialty [place] [address] [address] [place] [address] PCP - General 01/21/17 03/02/17 Mariola Yoder MD [address] [place], [place] [address]SOPHIA [place]ven [facility] [address] [place] [address] PCP - General 03/03/17 07/24/17 [place] [address] [address] [facility] [address] [place] [address] PCP - General Family Medicine 07/25/17 02/25/18 Mariola Yoder MD [address] [place], [place] [address]SOPHIA [place]ven [facility] [address] [place] [address] PCP - General 02/26/18 06/08/19 No, Physician PCP - General 06/09/19 09/04/19 Liborio Shea, BREAD PANNER [address] [address] [facility] [address] [place] [address] PCP - General Family Medicine 09/05/19 [place] [address] [address] [facility] [address] [place] [address] Consulting Physician Endocrinology 12/29/21 Myriam Whaley CNM [address] [address] Nurse Practitioner Obstetrics and Gynecology 12/29/21 Sal Ferraro MD [address] [place] [address] Consulting Physician Internal Medicine 01/19/22 documented as of this encounter
--- OUTSIDE RECORDS SUMMARY | 2024-11-21 10:47 | XMS_ITS | Referral Summary ---
Author Organization [facility] Address [address] [place] [id number] Care Team Providers Care Creative Manager Name Role Phone Liborio Shea NP Primary Care Provider Antonio Ortiz MD Unavailable [phone] Myriam Whaley [facility] Unavailable [phone] Sal Ferraro MD Unavailable Allergies Active Allergy [...] therapy Assessment & Plan (12/29/2021 1:12 PM DESIGNER AND PATTERNMAKER): Patient diagnosed with hyperthyroidism 03/2021 most likely [...] advised patient to make an appointment with box person - follow-up in 4 weeks Assessment & Plan (12/01/2021 8:36 AM DESIGNER AND PATTERNMAKER): Patient diagnosed with hyperthyroidism 03/2021 most likely [...] advised patient to make an appointment with box person - follow-up in 4 weeks Hyperthyroidism 05/20/2021 [...] (09/16/2020): Added automatically from request for surgery [id number] Gestational hypertension affecting second pregna ncy 09/13/2019 [...] Yrs) PURPLE 01/17/2021,12/25/2020 Tdap 09/07/2019,10/26/2016,12/20/2011 Varicella 02/23/2012,03/28/2002 Social History Tobacco Use Types Packs/Day Years [...] on file Legal Sex Female 4:08 AM DESIGNER AND PATTERNMAKER Gender Identity Female 05/20/2021 11:53 AM CDT Sexual Orientation Straight 05/20/2021 11 :53 AM CDT Last Filed Vital Signs Vital Sign Reading [...] 04/01/2022 10:31 AM CDT Plan of Treatment Not on file Medical Devices Implanted Type Area Transmitter Operator Device Identifier Shelf Expiration Date Model / Serial / Lot Allosync Dimineralized Bone Matrix Implanted:Qty: 1 on 10/29/2020 by Terry Hickey MD at [facility] Right: Knee [employer] [id number] 03/20/2022 / [id number] / [id number] Description:8 mL CB DBM past e Allosync Demineralized Bone Matrix Ref Abs-2014-10 Implanted:Qty: 1 on 10/29/2020 by Terry Hickey MD at [facility] Right: Knee [employer] [id number] 05/20/2022 / [id number] / [id number] Description:allosync CB DBM putty Procedures Procedure Name [...] RNA Detection and Quantitation by Real-Time Reverse Mammal Keeper-PCR (RT-PCR). Current interpretive data was last revised on 2016. Mariola Yoder MD LAB BLOOD ORDERAB LES Final Result CDR HISTORICAL RESULTS from Last 3 Months or Most Recently Relevant to Health Maintenance Insurance [facility] PLUS [facility] H[facility]/PPO Address: [address] [place] [address] [facility] CHOICE PLUS [facility] HMO/PPO Address: [place] [id number] [facility] CHOICE PLUS [facility] HMO/PPO Address: [address] [address] [place] [address] [employer] Advance Directives For more information, please contact: [phone] Documents on File Type Date Recorded Patient Guide Winder Expl anation ADVANCE DIRECTIVE 10/29/2020 11:53 AM Care Teams Creative Manager Relationship Specialty [place] [address] [address] PCP - General Family Medicine 09/05/19 [place] [address] [address] [facility] [address], [place] [address] Consulting Physician Endocrinology 12/29/21 Myriam Whaley CNM [address] [address] Nurse Practitioner Obstetrics and Gynecology 12/29/21 Sal Ferraro MD [address] [place] [address] (work) Consulting Physician Internal Medicine 01/19/22
--- OUTSIDE RECORDS SUMMARY | 2024-11-21 10:47 | XMS_ITS | Clinical Summary ---
Author Organization [facility] Address [address] [place] [address] Phone Care Team Providers Care Rotary Engraver Name Role Phone Unavailable Primary Care Provider Unavailabl e Medications vit no.[id number] ic 27 mg iron- 1 mg Tablet Take 1 Tablet by mouth daily. Active ferrous sulfate 325 mg (65 mg iron) tablet Take 325 mg by mouth. Active pyridoxine (VITAMIN B6) 25 mg Tablet Take 25 mg by mouth daily. Active ondansetron (ZOFRAN ODT) 4 mg Tablet, Rapid Dissolve DISSOLVE 1 TABLET ON THE TONGUE EVERY 6 HOURS NEEDED FOR NAUSEA OR VOMITING 07/06/2024 Active docusate sodium (COLACE) 50 mg capsule Take 50 mg by mouth 2 times daily. Active Active Problems Problem Noted Date Diagnosed Date Thyroid disease affecting 07/20/2024 History of pre-eclampsia in prior , currently 07/20/2024 Supervision of high-risk , second trime ster 07/20/2024 Estimated Date of Delivery Comme nts Yes 01/18/2025 Based on Other B asis Encounters Date Type Department Care Team Description 10/30/2024 8:25 AM NUT SHELLER MACHINE OPERATOR - 10/30/2024 11:59 PM [facility] Hospital Encounter [facility] [address] [place] [address] Liborio Rocha MD Discharge Disposition: Home or Self Care 09/27/2024 8:15 AM NUT SHELLER MACHINE OPERATOR - 09/27/2024 11:59 PM NUT SHELLER MACHINE OPERATOR [facility] [address] [place] [id number] Emily Kemp MD Discharge Disposition: Home or Self Care 08/30/2024 8:58 AM NUT SHELLER MACHINE OPERATOR - 08/30/2024 11:59 PM NUT SHELLER MACHINE OPERATOR Hospital Encounter [facility] [address] [place] [address] Diane Sheppard CNM Discharge Disposition: Home or Self Care from Last 3 Months Social History Tobacco Use Types Packs/Day Years Used Date Smoking Tobacco: Never Assessed Estimated Date of Delivery Comme nts Yes 01/18/2025 Based on Other B asis Sex and Gender Information Value Date Recorded Sex Assigned at Not on file Legal Sex Female 1:51 PM CDT Gender Identity Not on file Sexual Orientation Not on file Last Filed Vital Signs Vital Sign Reading Time Taken Comments Blood Pressure 112/64 07/20/2024 9:04 AM CDT Pulse 118 07/20/2024 9:04 AM CDT Temperature - - Respiratory Rate - - Oxygen Saturation 98% 07/20/2024 9:04 AM CDT Inhaled Oxygen Concentration - - Weight 88 kg (194 lb) 07/20/2024 9:04 AM CDT Height 165.1 cm (5' 5 ) 07/20/2024 9:04 AM CDT Body Mass Index 32.28 07/20/2024 9:04 AM CDT Plan of Treatment Health Maintenance Due Date Last Done Comments HPV VACCINES (3 - 2-dose series) 06/19/2012 03/22/2012, 12/20/2011 CERVICAL CANCER SCREENING 2020 INFLUENZA VACCINE (#1) 2024 , 07/27/2019, 09/25/2018 COVID-19 Vaccine ( season) 2024 01/17/2021, 12/25/2020 RSV VACCINE (60+ or ) (1 - Risk 1-dose series) 11/23/2024 DTAP/TDAP/TD VACCINES (9 - Td or Tdap) 09/07/2029 09/07/2019, 10/26/2016, 12/20/2011, Additional history exists HEPATITIS B VACCINES Completed 10/10/2000, 03/07/2000, 01/04/2000, Additional history exists PNEUMOCOCCAL VACCINE 0-64 YEARS Aged Out No longer eligible based on patient's age to complete this topic Procedures Procedure Name Priority Date/Time Associated Diagnosis Comments US OB FOLLOW UP + TV Routine 10/30/2024 8:57 AM NUT SHELLER MACHINE OPERATOR Low-lying placenta in second trimester History of pre-eclampsia US OB FOLLOW UP PER FETUS Routine 09/27/2024 9:05 AM NUT SHELLER MACHINE OPERATOR Hyperthyroidism affecting in second trimester History of pre-eclampsia Anxiety during US OB DETAIL SINGLE GEST Routine 08/30/2024 9:59 AM NUT SHELLER MACHINE OPERATOR Hyperthyroidism affecting in second trimester History of pre-eclampsia in prior , currently from Last 3 Months Results * US OB FOLLOW UP + TV (10/30/2024 8:57 AM NUT SHELLER MACHINE OPERATOR) Anatomical Region Laterality Modality Pelvis Ultrasound 10/30/2024 8:33 AM NUT SHELLER MACHINE OPERATOR Narrative 10/30/2024 9:02 AM NUT SHELLER MACHINE OPERATOR STL FOLLOW UP ----- Pat. Name: DOMI SAM Study Date: 10/30/2024 8:33am Pat. NO: [id number] Referring ??MD: EMILY KEMP MD Site: [place] [employer] Officer: Franci Shepherd RDMS : 2000 Age: 24 ----- INDICATION ----- Screening Follow-Up Hyperthyroidism Complicating Antepartum Complications, Other Specified Anxiety, Maternal Maternal Obesity (BMI>40) Complicating CODING ----- Diagnoses ? Z3A.28: Weeks of gestation ?O99.213: Obesity complicating ?O99.343: Other mental disorders complicating ?O99.891: Other specified diseases and conditions complicating ?O99.283: Other endocrine, nutritional and metabolic diseases complicating ?Z36.2: Encounter for other screening follow-up Procedures ?[id number]: Ultrasound, uterus, real time with image documentation ?[id number]: Ultrasound, uterus, real time with image documentation, follow up, transabdominal ?approach per fetus HISTORY ----- OB History ? 4. Para 2 ?T2A1L2 MATERNAL ASSESSMENT ----- Physical Exam ? Initial weight 86 kg, 190 lb. Initial BMI 31.62 kg/m?? METHOD ----- Transabdominal ultrasound examination, Transabdominal and transvaginal ultrasound examination ----- Rueda . Number of fetuses: 1 DATING ----- GA by prior assessment 28 w + 4 d ANU by prior assessment: 01/18/2025 Ultrasound examination on: 10/30/2024 GA by U/S based upon: AC, BPD, EFW, Femur, HC GA by U/S 29 w + 2 d ANU by U/S: 01/13/2025 Method of dating: Restore dating from previous exam Assigned: based on stated ANU, selected on 08/30/2024 Assigned GA 28 w + 4 d Assigned ANU: 01/18/2025 BIOMETRY ----- BPD ?72.9 ? mm ?29w 2d ?60% ?Hadlock OFD ?102.7 ?mm ?33w 2d ?>99% ?Stephenie HC ? 280.2 ?mm ?30w 5d ?81% ?Hadlock AC ? 251.3 ?mm ?29w 2d ?67% ?Hadlock Femur ?53.2 ? mm ?28w 2d ?26% ?Hadlock HC / AC ?1.12 ? 66% ?Nicolaides Weight Calculation: EFW ? 1,336 ? g ? 28w 5d ?57% ?Hadlock EFW (lb,oz) ? 2 lb 15 ? oz EFW by ?Hadlock ([id number]) Head / Face / Neck Biometry: Fourchette Sewer ? 4.1 ? mm Extremities / Bony Struc Biometry: FL / BPD ?0.73 FL / HC ? 0.19 FL / AC ? 0.21 GENERAL EVALUATION ----- Cardiac activity present. FHR 141 bpm. movements: present. Presentation: cephalic Placenta: Placental site: posterior Umbilical cord: Insertion site: placental insertion: normal Amniotic fluid: Amount of AF: normal amount. MVP 6.0 cm. CELY 15.4 cm. Q1 2.5 cm, Q2 2.9 cm, Q3 4.1 cm, Q4 6.0 cm MATERNAL STRUCTURES ----- Cervix ?Normal ?Approach - Transvaginal ANATOMY ----- The following structures appear normal: Head / Neck ? Cranium. Lateral ventricles. Cavum septi pellucidi. Heart / Thorax ?Diaphragm. Abdomen ? Stomach. Kidneys. Bladder. GROWTH OVERVIEW ----- Exam date ?GA ?BPD (mm) ? HC (mm) ?AC (mm) ? FL (mm) ?HL (mm) ?EFW (g) 08/30/2024 ?19w 6d ?44.5 ?33% ?170.7 ? 33% ?142.5 ?36% ?31.3 ?37% ?30.1 ?56% ?305 ?34% 09/27/2024 ?23w 6d ?57.1 ?29% ?217.3 ? 29% ?189.5 ?36% ?42.3 ?35% ? 623 ?36% 10/30/2024 ?28w 4d ?72.9 ?60% ?280.2 ? 81% ?251.3 ?67% ?53.2 ?26% ? 1,336 ? 57% COMMENT ----- Patient's name and date of were verified by the charge manager prior to the exam. Claudia DIAZ was present for the transvaginal ultrasound and served as a swimming coach. IMPRESSION ----- 1. Single living fetus with a gestational age of 28w 4d, based on the reported clinical dates. 2. Current growth parameters are consistent with the stated EDC. The size is appropriate for gestational age at 57% percentile (1336 g). 3. Unremarkable limited anatomy noted. A detailed anatomy cannot be performed secondary to advanced gestational age. However, there are no gross structural abnormalities noted. 4. The amniotic fluid is normal for gestational age (MVP:6 cm , CELY:15.4 cm ). 5. Posterior placenta. No previa/not low-lying. 6. Cephalic presentation. Recommendations: - Further imaging as indicated. Thank you for allowing us to participate in the care of this patient. Procedure Note Alycia Mojica MD - 10/30/2024 STL FOLLOW UP ----- Pat. Name:Petr SAM Date:10/30/2024 8:33am Pat. NO: [id number] MD:EMILY KEMP MD [facility]Franci Shepherd RDMS :2000Age:24 ----- INDICATION ----- Screening Follow-Up Hyperthyroidism Complicating Antepartum Complications, Other Specified Anxiety, Maternal Maternal Obesity (BMI>40) Complicating CODING ----- Diagnoses Z3A.28: Weeks of gestation O99.213: Obesity complicating O99.343: Other mental disorders complicatingpregnancy O99.891: Other specified diseases and conditionscomplicating O99.283: Other endocrine, nutritional andmetabolic diseases complicating Z36.2: Encounter for other screeningfollow-up Procedures [id number]: Ultrasound, uterus, real time withimage documentation 83325: Ultrasound, uterus, real time withimage documentation, follow up, transabdominal approach per fetus HISTORY ----- OB History 4. Para 2 T2A1L2 MATERNAL ASSESSMENT ----- Physical Exam Initial weight 86 kg, 190 lb. Initial BMI 31.62kg/m?? METHOD ----- Transabdominal ultrasound examination, Transabdominal and transvaginalultrasound examination ----- Rueda . Number of fetuses: 1 DATING ----- GA by prior [id number] w + 4 d ANU by prior assessment:01/18/2025 Ultrasound examination on:10/30/2024 GA by U/S based upon:AC, BPD, EFW, Femur, HC GA by U/S29 w + 2 d ANU by U/S:01/13/2025 Method of dating:Restore dating from previous exam Assigned:based on stated ANU, selected on 08/30/2024 Assigned GA28 w + 4 d Assigned ANU:01/18/2025 BIOMETRY ----- BPD 72.9 mm 29w 2d 60%Hadlock OFD 102.7 mm 33w 2d >99%Stephenie HC 280.2 mm 30w 5d 81%Hadlock AC 251.3 mm 29w 2d 67%Hadlock Femur 53.2 mm 28w 2d 26%Hadlock HC / AC 1.12 66%Nicolaides Weight Calculation: EFW 1,336 g 28w 5d57% Hadlock EFW (lb,oz) 2 lb 15 oz EFW by Hadlock ([id number]) Head / Face / Neck Biometry: Fourchette Sewer 4.1mm Extremities / Bony Struc Biometry: FL / BPD 0.73 FL / HC 0.19 FL / AC 0.21 GENERAL EVALUATION ----- Cardiac activity present. FHR 141 bpm. movements: present.Presentation: cephalic Placenta: Placental site: posterior Umbilical cord: Insertion site: placental insertion: normal Amniotic fluid: Amount of AF: normal amount. MVP 6.0 cm. CELY 15.4 cm. Q12.5 cm, Q2 2.9 cm, Q3 4.1 cm, Q4 6.0 cm MATERNAL STRUCTURES ----- Cervix Normal Approach - Transvaginal ANATOMY ----- The following structures appear normal: Head / Neck Cranium. Lateral ventricles. Cavum septipellucidi. Heart / Thorax Diaphragm. Abdomen Stomach. Kidneys. Bladder. GROWTH OVERVIEW ----- Exam date GA BPD (mm) HC (mm) AC (mm) FL(mm) HL (mm) EFW (g) 08/30/2024 19w 6d 44.5 33% 170.7 33% 142.5 36%31.3 37% 30.1 56% 305 34% 09/27/2024 23w 6d 57.1 29% 217.3 29% 189.5 36%42.3 35% 623 36% 10/30/2024 28w 4d 72.9 60% 280.2 81% 251.3 67%53.2 26% 1,336 57% COMMENT ----- Patient's name and date of were verified by the charge manager prior tothe exam. Claudia DIAZ was present for the transvaginal ultrasound and served as achaperone. IMPRESSION ----- 1. Single living fetus with a gestational age of 28w 4d, based on thereported clinical dates. 2. Current growth parameters are consistent with the stated EDC. The fetalsize is appropriate for gestational age at 57% percentile (1336 g). 3. Unremarkable limited anatomy noted. A detailed anatomycannot be performed secondary to advanced gestational age. However, there are no gross structural abnormalities noted. 4. The amniotic fluid is normal for gestational age (MVP:6 cm , CELY:15.4cm ). 5. Posterior placenta. No previa/not low-lying. 6. Cephalic presentation. Recommendations: - Further imaging as indicated. Thank you for allowing us to participate in the care of this patient. us Liborio Rocha MD US ORDERABLES Final Re sult * US OB FOLLOW UP PER FETUS (09/27/2024 9:05 AM NUT SHELLER MACHINE OPERATOR) Anatomical Region Laterality Modality Pelvis Ultrasound 09/27/2024 8:34 AM NUT SHELLER MACHINE OPERATOR Narrative 09/27/2024 9:08 AM NUT SHELLER MACHINE OPERATOR STL FOLLOW UP ----- Pat. Name: DOMI SAM Study Date: 09/27/2024 8:34am Pat. NO: [id number] Referring ??: EMILY KEMP MD Site: [place] [employer] Officer: Margaret Rizzo RDMS : 2000 Age: 24 ----- INDICATION ----- Screening Follow-Up Hyperthyroidism Complicating Antepartum Complications, Other Specified ?hx of pre-e Anxiety, Maternal Maternal Obesity (BMI>40) Complicating CODING ----- Diagnoses ? Z3A.23: Weeks of gestation ?O99.342: Other mental disorders complicating ?O99.282: Other endocrine, nutritional and metabolic diseases complicating ?Z36.3: Encounter for screening for malformations ?Z3A.23: Weeks of gestation ?O99.891: Other specified diseases and conditions complicating ?O99.342: Other mental disorders complicating ?O99.282: Other endocrine, nutritional and metabolic diseases complicating ?Z36.2: Encounter for other screening follow-up ?Z3A.23: Weeks of gestation ?O99.212: Obesity complicating ?O99.342: Other mental disorders complicating ?O99.282: Other endocrine, nutritional and metabolic diseases complicating Procedures ?[id number]: Ultrasound, uterus, real time with image documentation, follow up, transabdominal ?approach per fetus HISTORY ----- OB History ? 4. Para 2 ?T2A1L2 MATERNAL ASSESSMENT ----- Physical Exam ? Weight 93 kg. Initial weight 86 kg, 190 lb. BMI 34.11 kg/m??. Initial BMI 31.62 kg/m??. Weight gain 7 kg, ?15 lb METHOD ----- Transabdominal ultrasound examination ----- Rueda . Number of fetuses: 1 DATING ----- GA by prior assessment 23 w + 6 d ANU by prior assessment: 01/18/2025 Ultrasound examination on: 09/27/2024 GA by U/S based upon: AC, BPD, EFW, Femur, HC GA by U/S 23 w + 5 d ANU by U/S: 01/19/2025 Method of dating: Restore dating from previous exam Assigned: based on stated ANU, selected on 08/30/2024 Assigned GA 23 w + 6 d Assigned ANU: 01/18/2025 BIOMETRY ----- BPD ?57.1 ? mm ?23w 3d ?29% ?Damián NIÑO ?79.2 ? mm ?25w 6d ?96% ?Stephenie HC ? 217.3 ?mm ?23w 5d ?29% ?Hadlock AC ? 189.5 ?mm ?23w 5d ?36% ?Hadlock Femur ?42.3 ? mm ?23w 6d ?35% ?Hadlock HC / AC ?1.15 ? 57% ?Nicolaides Weight Calculation: EFW ?623 ? g ?23w 4d ?36% ?Hadlock EFW (lb,oz) ?1 lb 6 ?oz EFW by ?Hadlock ([id number]-[id number]-FL) Extremities / Bony Struc Biometry: FL / BPD ?0.74 FL / HC ? 0.19 FL / AC ? 0.22 GENERAL EVALUATION ----- Cardiac activity present. FHR 145 bpm. movements: present. Presentation: cephalic Placenta: Placental site: posterior, low lying Umbilical cord: Cord vessels: 3 vessel cord. Insertion site: placental insertion: normal Amniotic fluid: Amount of AF: normal amount. MVP 5.0 cm ANATOMY ----- The following structures appear normal: Head / Neck ? Cranium. Lateral ventricles. Choroid plexus. Midline falx. Cavum septi pellucidi. Cerebellum. Cisterna ?magna. Heart / Thorax ?4-chamber view. RVOT view. LVOT view. 3-vessel view. Ductal arch view. High short axis view. Cardiac ?rhythm. ?Diaphragm. Abdomen ? Stomach. Kidneys. Bladder. GROWTH OVERVIEW ----- Exam date ?GA ?BPD (mm) ? HC (mm) ?AC (mm) ? FL (mm) ?HL (mm) ?EFW (g) 08/30/2024 ?19w 6d ?44.5 ?33% ?170.7 ? 33% ?142.5 ?36% ?31.3 ?37% ?30.1 ?56% ?305 ?34% 09/27/2024 ?23w 6d ?57.1 ?29% ?217.3 ? 29% ?189.5 ?36% ?42.3 ?35% ? 623 ?36% COMMENT ----- Patient's name and date of were verified by the charge manager prior to the exam IMPRESSION ----- 1. Single living fetus with a gestational age of 23w 6d, based on the reported clinical dates. 2. Current growth parameters are consistent with the stated EDC. The size is appropriate for gestational age at 36%percentile (623 g ). 3. Unremarkable limited anatomy noted. The previously suboptimally visualized anatomy (HSA/ RVO, LVO, DA ) appears grossly normal. The anatomic survey is now complete. 4. The amniotic fluid is normal for gestational age (MVP:5 cm). 5. Posterior, low lying placenta. TVUS not performed. Recommendations: - Repeat ultrasound in third trimester to re-evaluate placental edge. Thank you for allowing us to participate in the care of this patient. Procedure Note Mona Washington MD - 09/27/2024 STL FOLLOW UP ----- Pat. Name:Petr SAM Date:09/27/2024 8:34am Pat. NO: [id number] MD:EMILY KEMP MD [facility]Margaret Rizzo RDMS :2000Age:24 ----- INDICATION ----- Screening Follow-Up Hyperthyroidism Complicating Antepartum Complications, Other Specified hx of pre-e Anxiety, Maternal Maternal Obesity (BMI>40) Complicating CODING ----- Diagnoses Z3A.23: Weeks of gestation O99.342: Other mental disorders complicatingpregnancy O99.282: Other endocrine, nutritional andmetabolic diseases complicating Z36.3: Encounter for screening formalformations Z3A.23: Weeks of gestation O99.891: Other specified diseases and conditionscomplicating O99.342: Other mental disorders complicatingpregnancy O99.282: Other endocrine, nutritional andmetabolic diseases complicating Z36.2: Encounter for other screeningfollow-up Z3A.23: Weeks of gestation O99.212: Obesity complicating O99.342: Other mental disorders complicatingpregnancy O99.282: Other endocrine, nutritional andmetabolic diseases complicating Procedures [id number]: Ultrasound, uterus, real time withimage documentation, follow up, transabdominal approach per fetus HISTORY ----- OB History 4. Para 2 T2A1L2 MATERNAL ASSESSMENT ----- Physical Exam Weight 93 kg. Initial weight 86 kg, 190 lb. BMI34.11 kg/m??. Initial BMI 31.62 kg/m??. Weight gain 7 kg, 15 lb METHOD ----- Transabdominal ultrasound examination ----- Rueda . Number of fetuses: 1 DATING ----- GA by prior [id number] w + 6 d ANU by prior assessment:01/18/2025 Ultrasound examination on:09/27/2024 GA by U/S based upon:AC, BPD, EFW, Femur, HC GA by U/S23 w + 5 d ANU by U/S:01/19/2025 Method of dating:Restore dating from previous exam Assigned:based on stated ANU, selected on 08/30/2024 Assigned GA23 w + 6 d Assigned ANU:01/18/2025 BIOMETRY ----- BPD 57.1 mm 23w 3d 29%Hadlock OFD 79.2 mm 25w 6d 96%Stephenie HC 217.3 mm 23w 5d 29%Hadlock AC 189.5 mm 23w 5d 36%Hadlock Femur 42.3 mm 23w 6d 35%Hadlock HC / AC 1.15 57%Nicolaides Weight Calculation: EFW 623 g 23w 4d 36%Hadlock EFW (lb,oz) 1 lb 6 oz EFW by Hadlock ([id number]-FL) Extremities / Bony Struc Biometry: FL / BPD 0.74 FL / HC 0.19 FL / AC 0.22 GENERAL EVALUATION ----- Cardiac activity present. FHR 145 bpm. movements: present.Presentation: cephalic Placenta: Placental site: posterior, low lying Umbilical cord: Cord vessels: 3 vessel cord. Insertion site: placentalinsertion: normal Amniotic fluid: Amount of AF: normal amount. MVP 5.0 cm ANATOMY ----- The following structures appear normal: Head / Neck Cranium. Lateral ventricles. Choroid plexus.Midline falx. Cavum septi pellucidi. Cerebellum. Cisterna magna. Heart / Thorax 4-chamber view. RVOT view. LVOT view. 3-vesselview. Ductal arch view. High short axis view. Cardiac rhythm. Diaphragm. Abdomen Stomach. Kidneys. Bladder. GROWTH OVERVIEW ----- Exam date GA BPD (mm) HC (mm) AC (mm) FL(mm) HL (mm) EFW (g) 08/30/2024 19w 6d 44.5 33% 170.7 33% 142.5 36%31.3 37% 30.1 56% 305 34% 09/27/2024 23w 6d 57.1 29% 217.3 29% 189.5 36%42.3 35% 623 36% COMMENT ----- Patient's name and date of were verified by the charge manager prior tothe exam IMPRESSION ----- 1. Single living fetus with a gestational age of 23w 6d, based on thereported clinical dates. 2. Current growth parameters are consistent with the stated EDC. The fetalsize is appropriate for gestational age at 36%percentile (623 g ). 3. Unremarkable limited anatomy noted. The previously suboptimallyvisualized anatomy (HSA/ RVO, LVO, DA ) appears grossly normal. The anatomic survey is now complete. 4. The amniotic fluid is normal for gestational age (MVP:5 cm). 5. Posterior, low lying placenta. TVUS not performed. Recommendations: - Repeat ultrasound in third trimester to re-evaluate placental edge. Thank you for allowing us to participate in the care of this patient. us Emily Kemp MD US ORDERABLES Final Res ult * US OB DETAIL SINGLE GEST (08/30/2024 9:59 AM NUT SHELLER MACHINE OPERATOR) Anatomical Region Laterality Modality Pelvis Ultrasound 08/30/2024 10:1 6 AM NUT SHELLER MACHINE OPERATOR Narrative 08/30/2024 10:12 AM NUT SHELLER MACHINE OPERATOR STL COMP ----- PatSamantha Name: DOMI SAM Study Date: 08/30/2024 10:16am Pat. NO: [id number] Referring ??MD: EMILY KEMP MD Site: [place] [employer] Officer: Margaret Rizzo RDMS : 2000 Age: 24 ----- INDICATION ----- Anatomy Survey Hyperthyroidism Complicating Anxiety, Maternal CODING ----- Diagnoses ? Z3A.19: Weeks of gestation ?O99.342: Other mental disorders complicating ?O99.282: Other endocrine, nutritional and metabolic diseases complicating ?Z36.3: Encounter for screening for malformations Procedures ?[id number]: Ultrasound, uterus, real time with image documentation, and maternal evaluation ?plus detailed anatomic examination, transabdominal approach HISTORY ----- OB History ? 4. Para 2 ?T2A1L2 MATERNAL ASSESSMENT ----- Physical Exam ? Weight 88 kg. BMI 32.28 kg/m?? METHOD ----- Transabdominal ultrasound examination ----- Rueda . Number of fetuses: 1 DATING ----- Method of dating: based on stated ANU GA by prior assessment 19 w + 6 d ANU by prior assessment: 01/18/2025 Ultrasound examination on: 08/30/2024 GA by U/S based upon: AC, BPD, EFW, Femur, HC GA by U/S 19 w + 4 d ANU by U/S: 01/20/2025 Assigned: based on stated ANU, selected on 08/30/2024 Assigned GA 19 w + 6 d Assigned ANU: 01/18/2025 BIOMETRY ----- BPD ?44.5 ? mm ? 19w 3d ? 33% ?Hadlock OFD ?62.4 ? mm ? 21w 2d ? 92% ?Stephenie HC ? 170.7 ?mm ? 19w 5d ? 33% ?Hadlock Cerebellum tr ?18.9 ? mm ? 19w 0d ? 25% ?[place] Nuchal fold ?3.9 ?mm AC ? 142.5 ?mm ? 19w 4d ? 36% ?Hadlock Femur ?31.3 ? mm ? 19w 5d ? 37% ?Hadlock Humerus ?30.1 ? mm ? 19w 6d ? 56% ?Stephenie HC / AC ?1.20 ?64% ? Nicolaides Weight Calculation: EFW ?305 ? g ?19w 4d ?34% ?Hadlock EFW (lb,oz) ?0 lb 11 ? oz EFW by ?Hadlock ([id number]-[id number]-AX-FL) Head / Face / Neck Biometry: Fourchette Sewer ? 5.2 ?mm CM ? 2.7 ?mm ? 2% ?Nicolaides Outer IOD ? 31.5 ?mm ? 20w 2d ?34% ?Stephenie Extremities / Bony Struc Biometry: FL / BPD ? 0.70 ?57% ?Hadlock FL / HC ?0.18 ?29% ?Hadlock FL / AC ?0.22 ?58% ?Hadlock GENERAL EVALUATION ----- Cardiac activity present. FHR 137 bpm. movements: present. Presentation: Variable Placenta: Placental site: posterior, low lying. Placental gwsd-lx-bgddpllp os distance 11 mm Umbilical cord: Cord vessels: 3 vessel cord. Insertion site: placental insertion: normal Amniotic fluid: Amount of AF: normal amount. MVP 3.7 cm ANATOMY ----- The following structures appear normal: Head / Neck ? Cranium. Lateral ventricles. Choroid plexus. Midline falx. Cavum septi pellucidi. Cerebellum. Cisterna ?magna. Thalami. ?Nuchal fold. Face ?Lips. Profile. Nose. Palate. Orbits. Heart / Thorax ?4-chamber view. 3-vessel view. 1-xgivin-yoyqgjs view. Situs. Aortic arch view. Superior vena cava. ?Inferior vena cava. Cardiac rhythm. ?Diaphragm. Abdomen ? Abdominal wall. Stomach. Kidneys. Bladder. Spine ? Cervical spine. Thoracic spine. Lumbar spine. Sacral spine. Extremities / ? Arms. Right hand. Left hand. Legs. Right foot. Left foot. Skeleton The following structures could not be adequately visualized: Heart / Thorax ?RVOT view. LVOT view. Ductal arch view. High short axis view. MATERNAL STRUCTURES ----- Cervix ?Visualized ?Approach - Transabdominal: Cervical length 45.9 mm Right Ovary ? Normal ?Size 44 mm x 43 mm x 24 mm. Vol 24.1 cm?? Left Ovary ?Normal ?Size 32 mm x 28 mm x 14 mm. Vol 6.5 cm?? GROWTH OVERVIEW ----- Exam date ?GA ?BPD (mm) ? HC (mm) ?AC (mm) ? FL (mm) ?HL (mm) ?EFW (g) 08/30/2024 ?19w 6d ?44.5 ?33% ?170.7 ? 33% ?142.5 ?36% ?31.3 ?37% ?30.1 ?56% ?305 ?34% COMMENT ----- Patient's name and date of were verified by the charge manager before the exam IMPRESSION ----- IUP at 19w 6d AGA growth with EFW 305 g (34%) No major structural malformations are identified within the limits of ultrasound, however some views are suboptimal and thus incomplete including LVOT, RVOT, DA. No soft markers of aneuploidy are visualized. Normal amniotic fluid volume, MVP 3.7 cm Normal cervical length, 45.9 mm Placenta is posterior, low lying measuring 11mm from internal os Recommendations: - Recommend growth and completion of anatomy in 4 weeks - Recommend TVUS for placental location at 28 weeks Procedure Note Joyce Palomares MD - 08/30/2024 STL COMP ----- Pat. Name:Petr SAM Date:08/30/2024 10:16am Pat. NO: [id number] MD:EMILY KEMP MD Site:[place]avenographer:Margaret Rizzo RDMS :2000Age:24 ----- INDICATION ----- Anatomy Survey Hyperthyroidism Complicating Anxiety, Maternal CODING ----- Diagnoses Z3A.19: Weeks of gestation O99.342: Other mental disorders complicatingpregnancy O99.282: Other endocrine, nutritional andmetabolic diseases complicating Z36.3: Encounter for screening formalformations Procedures 64105: Ultrasound, uterus, real time withimage documentation, and maternal evaluation plus detailed anatomic examination,transabdominal approach HISTORY ----- OB History 4. Para 2 T2A1L2 MATERNAL ASSESSMENT ----- Physical Exam Weight 88 kg. BMI 32.28 kg/m?? METHOD ----- Transabdominal ultrasound examination ----- Rueda . Number of fetuses: 1 DATING ----- Method of dating:based on stated ANU GA by prior [id number] w + 6 d ANU by prior assessment:01/18/2025 Ultrasound examination on:08/30/2024 GA by U/S based upon:AC, BPD, EFW, Femur, HC GA by U/S19 w + 4 d ANU by U/S:01/20/2025 Assigned:based on stated ANU, selected on 08/30/2024 Assigned GA19 w + 6 d Assigned ANU:01/18/2025 BIOMETRY ----- BPD 44.5 mm 19w 3d33% Hadlock OFD 62.4 mm 21w 2d92% Stephenie HC 170.7 mm 19w 5d33% Hadlock Cerebellum tr 18.9 mm 19w 0d25% Ap[place]aca Nuchal fold 3.9 mm AC 142.5 mm 19w 4d36% Hadlock Femur 31.3 mm 19w 5d37% Hadlock Humerus 30.1 mm 19w 6d56% Stephenie HC / AC 1.20 64%Nicolaides Weight Calculation: EFW 305 g 19w 4d 34%Hadlock EFW (lb,oz) 0 lb 11 oz EFW by Hadlock ([id number]) Head / Face / Neck Biometry: Fourchette Sewer 5.2 mm CM 2.7 mm 2%Nicolaides Outer IOD 31.5 mm 20w 2d 34%Stephenie Extremities / Bony Struc Biometry: FL / BPD 0.70 57%Hadlock FL / HC 0.18 29%Hadlock FL / AC 0.22 58%Hadlock GENERAL EVALUATION ----- Cardiac activity present. FHR 137 bpm. movements: present.Presentation: Variable Placenta: Placental site: posterior, low lying. Placental norp-pk-mturzcjysn distance 11 mm Umbilical cord: Cord vessels: 3 vessel cord. Insertion site: placentalinsertion: normal Amniotic fluid: Amount of AF: normal amount. MVP 3.7 cm ANATOMY ----- The following structures appear normal: Head / Neck Cranium. Lateral ventricles. Choroid plexus.Midline falx. Cavum septi pellucidi. Cerebellum. Cisterna magna. Thalami. Nuchal fold. Face Lips. Profile. Nose. Palate. Orbits. Heart / Thorax 4-chamber view. 3-vessel view. 5-frrsyq-hrwatxtqlsk. Situs. Aortic arch view. Superior vena cava. Inferior vena cava. Cardiac rhythm. Diaphragm. Abdomen Abdominal wall. Stomach. Kidneys. Bladder. Spine Cervical spine. Thoracic spine. Lumbar spine.Sacral spine. Extremities / Arms. Right hand. Left hand. Legs. Right foot.Left foot. Skeleton The following structures could not be adequately visualized: Heart / Thorax RVOT view. LVOT view. Ductal arch view. High shortaxis view. MATERNAL STRUCTURES ----- Cervix Visualized Approach - Transabdominal: Cervical length 45.9mm Right Ovary Normal Size 44 mm x 43 mm x 24 mm. Vol 24.1 cm?? Left Ovary Normal Size 32 mm x 28 mm x 14 mm. Vol 6.5 cm?? GROWTH OVERVIEW ----- Exam date GA BPD (mm) HC (mm) AC (mm) FL(mm) HL (mm) EFW (g) 08/30/2024 19w 6d 44.5 33% 170.7 33% 142.5 36%31.3 37% 30.1 56% 305 34% COMMENT ----- Patient's name and date of were verified by the charge manager beforethe exam IMPRESSION ----- IUP at 19w 6d AGA growth with EFW 305 g (34%) No major structural malformations are identified within the limitsof ultrasound, however some views are suboptimal and thus incomplete including LVOT, RVOT, DA. No soft markersof aneuploidy are visualized. Normal amniotic fluid volume, MVP 3.7 cm Normal cervical length, 45.9 mm Placenta is posterior, low lying measuring 11mm from internal os Recommendations: - Recommend growth and completion of anatomy in 4 weeks - Recommend TVUS for placental location at 28 weeks us Diane Sheppard [facility] US ORDERABLES Final Res ult from Last 3 Months Insurance [employer] CHOICE POS Member Subscriber Plan / Payer (Ef fective 2024-Present) Name:Domi Sam Relation to Subscriber:Spouse Name:Russ Sam Date of :1997 (Home) Address: [address] [place] [address] Payer ID:[id number] (NAIC) Type:POS Address: [facility] [id number] [place] [id number]
[2024-11-21 10:51] LABS: Add Urine Microscopic? YES; Appearance Urine Clear (Clear); Bacteria Urine Rare /hpf; Bilirubin Urine Negative (Negative); Blood Urine Negative (Negative); Color Urine Yellow (Yellow); Glucose Urine UA Negative (Negative); Ketones Urine 1+ mg/dL (Negative); Leukocyte Esterase Ur 2+ LEU/UL (Negative); Nitrate Urine Negative (Negative); Non Pathogenic Casts 0-2; Protein Urine Negative (Negative); RBC Urine 0-2 /hpf (0-2); Specific Grav Ur 1.009 (1.001-1.035); Squamous Epithelial Cell Urine Few /hpf (Few); Urobilinogen Urine 0.2 mg/dL (<2.0); pH Urine 6.5 (5.0-9.0)
[2024-11-21 10:55] LABS: Creatinine Urine 64.7 mg/dL; Total Protein Urine Random 11 mg/dL; Ur Ttl Prot Creatinine Ratio 0.17 mg/mg (0-0.20)
[2024-11-21 10:55] LABS: Alanine Aminotransferase 16 U/L (6-35); Albumin Level 3.5 g/dL (3.5-5.1); Alkaline Phosphatase 91 U/L (38-126); Anion Gap 10 mmol/L (4-12); Aspartate Amino Transferase 22 U/L (14-36); Bilirubin,Total 0.7 mg/dL (0.2-1.3); Blood Urea Nitrogen 3 mg/dL (7-17); Calcium 9.2 mg/dL (8.4-10.2); Carbon Dioxide 20 mmol/L (22-30); Chloride 106 mmol/L (98-107); Estimated CRCL calculation 186 ml/min; Estimated Glomerular Filt Rate > 60; Glucose 79 mg/dL (65-110); Potassium 4.1 mmol/L (3.4-5.0); Sodium 136 mmol/L (137-145); Uric Acid 4.6 mg/dL (2.5-7.5)
--- NOTE | 2024-11-21 11:09 | PC.NURSE ---
Dr. Kemp informed this 31 5/7 wks gestation pt was sent in by the office today due to having elevated BP's at office appointment today. Pt has a hx of elevated BP's with her 1st . MD updated on BP's, lab results, and reactive NST. would like pt to do a 24 hr urine for baseline.
--- NOTE | 2024-11-21 11:23 | PC.NURSE ---
Dr. Kemp informed pt states she completed a 24 hr urine at 12 wks gestation with this . Order received to cancel this 24 hr urine collection.
== END 2024-11-21 11:25 | disposition home or self-care (01) ==
LOC: ANHOBOP 09:56 → ANHOBPP 09:58
PROVIDERS: Visit Provider Obstetrics & Gynecology Gynecology
DX: O13.9 Gestational [pregnancy-induced] hypertension without significant proteinuria, unspecified trimester (principal); Z3A.00 Weeks of gestation of pregnancy not specified
CPT/HCPCS: 36415; 59025; 80053; 81001; 82570; 84156; 84550; 85025; 87086; 99199

== ENCOUNTER 2025-01-14 05:57 | Inpatient (IN) | payer OTHER, SELFPAY ==
[2025-01-14] VITALS (65 sets, daily range): BP systolic 83–196; BP diastolic 31–165; PULSE 62–212; RESP 16–18; TEMP 36.1–36.8; O2SAT 91–100; BMI 32.3
--- OUTSIDE RECORDS SUMMARY | 2025-01-14 06:04 | XMS_ITS | Referral Summary ---
Author Organization [facility] Address [address] [place] [address] Care Team Providers Care Dairy Cattle Farm Worker Name Role Phone Lbiorio Shea NP Primary Care Provider [phone] Antonio Ortiz MD Unavailable [phone] Myriam Whaley [facility] Unavailable [phone] Sal Ferraro MD Unavailable Allergies Active Allergy [...] therapy Assessment & Plan (12/29/2021 1:12 PM GRAVITY PROSPECTING SUPERVISOR): Patient diagnosed with hyperthyroidism 03/2021 most likely [...] advised patient to make an appointment with sed high school teacher - follow-up in 4 weeks Assessment & Plan (12/01/2021 8:36 AM GRAVITY PROSPECTING SUPERVISOR): Patient diagnosed with hyperthyroidism 03/2021 most likely [...] advised patient to make an appointment with sed high school teacher - follow-up in 4 weeks Hyperthyroidism 05/20/2021 [...] (09/16/2020): Added automatically from request for surgery [id number] Gestational hypertension affecting second pregna ncy 09/13/2019 Anemia complicating 07/09/2019 Resolved Problems Problem Noted Date Diagnosed Date Resolved Date Presence of intrauterine contraceptive device 02/09/20 17 07/31/2021 Overview (03/18/2017): Contraceptive IUD in situ Immunizations Immunization Administration Dates Next Due DTaP 02/11/2005, 0,01/04/2000,11/02,1999 [...] on file Legal Sex Female 4:08 AM GRAVITY PROSPECTING SUPERVISOR Gender Identity Female 05/20/2021 11:53 AM CDT Sexual Orientation Straight 05/20/2021 11 :53 AM CDT Last Filed Vital Signs Vital Sign Reading Time Taken Comments Blood Pressure 110/80 04/01/2022 10:31 AM CDT Pulse 83 04/01/2022 10:31 AM CDT Temperature 37.1 C (98.8 F) 01/29/2022 6:55 AM CDT Respiratory Rate 18 04/01/2022 10:3 1 AM CDT Oxygen Saturation 97% 01/29/2022 6:55 AM CDT Inhaled Oxygen Concentration - - Weight 83.8 kg (184 lb 12.8 oz) 022 10:31 AM CDT Height 165.1 cm (5' 5 ) 04/01/2022 10:3 1 AM CDT Body Mass Index 30.75 04/01/2022 10:31 AM CDT Plan of Treatment Not on file Medical Devices Implanted Type Area Track Vehicle Repairer Device Identifier Shelf Expiration Date Model / Serial / Lot Allosync Dimineralized Bone Matrix Implanted:Qty: 1 on 10/29/2020 by Terry Hickey MD at [facility] Right: Knee [employer] [id number] 03/20/2022 / [id number] / [id number] Description:8 mL CB DBM past e Allosync Demineralized Bone Matrix Ref Abs-2014-10 Implanted:Qty: 1 on 10/29/2020 by Terry Hickey MD at [facility] Right: Knee [employer] [id number] 05/20/2022 / [id number] / [id number] Description:allosync CB DBM putty Procedures Procedure Name [...] RNA Detection and Quantitation by Real-Time Reverse Press Setup Operator-PCR (RT-PCR). Current interpretive data was last revised on 2016. Mariola Yoder MD LAB BLOOD ORDERAB LES Final Result CDR HISTORICAL RESULTS from Last 3 Months or Most Recently Relevant to Health Maintenance Insurance [facility] CHOICE PLUS [facility] CHOICE PLUS IDPA Advance Directives For more information, please contact: [phone] Documents on File Type Date Recorded Patient Disability Attorney Expl anation ADVANCE DIRECTIVE 10/29/2020 11:53 AM Care Teams Dairy Cattle Farm Worker Relationship Specialty [place] [address] [address] PCP - General Family Medicine 09/05/19 [place] [address] [address] [facility] [address], [place] [address] Consulting Physician Endocrinology 12/29/21 Myriam Whaley CNM [address] [address] [facility] [address], [place] [address] Nurse Practitioner Obstetrics and Gynecology 12/29/21 Sal Ferraro MD [address] [place] [address] Consulting Physician Internal Medicine 01/19/22
--- OUTSIDE RECORDS SUMMARY | 2025-01-14 06:04 | XMS_ITS | Clinical Summary ---
Author Organization [facility] Address [address] [place] [address] Care Team Providers Care Arborist Climber Name Role Phone Liborio Shea NP Primary Care Provider [phone] Antonio Ortiz MD Unavailable [phone] Myriam Whaley [facility] Unavailable [phone] Sal Ferraro MD Unavailable [phone] Allergies Active Allergy Reactions Criticality Noted Date [...] therapy Assessment & Plan (12/29/2021 1:12 PM COTTON FARMER): Patient diagnosed with hyperthyroidism 03/2021 most likely [...] advised patient to make an appointment with high school vice principal - follow-up in 4 weeks Assessment & Plan (12/01/2021 8:36 AM COTTON FARMER): Patient diagnosed with hyperthyroidism 03/2021 most likely [...] advised patient to make an appointment with high school vice principal - follow-up in 4 weeks Hyperthyroidism 05/20/2021 [...] (09/16/2020): Added automatically from request for surgery [id number] Gestational hypertension affecting second pregna ncy 09/13/2019 [...] Hx Other Medical knee surgery; C omments: [facility] 04/30/2016 -; Laterality: right Seasonal allergies Allergies, se asonal; Comments: [facility] 04/30/2016 - Allergic ACL graft tear, subsequent encounter 09/16/2020 Added automatically from request for surgery [id number] Presence of intrauterine con traceptive device 02/08/2017 [...] on file Legal Sex Female 4:08 AM COTTON FARMER Gender Identity Female 05/20/2021 11:53 AM CDT [...] 07/27/2019, 07/27/2019, Additional history exists DTaP/Tdap/Td Vaccine ( Td or Tdap) 09/07/2029 09/07/2019, 10/26/2016, 12/20/2011, Additional history exists Hepatitis B Screening Completed 10/10/2000 , 03/07/2000, 01/04/2000, Additional history exists Varicella Vaccines Completed 02/23/2012, 03/28/2002 Hepatitis C Screening Completed 06/24/2016 Pneumococcal vaccine <65 Aged Out No longer eligible based on patient's age to complete this topic Medical Devices Implanted Type Area Tip Puncher Device Identifier Shelf Expiration Date Model / Serial / Lot Allosync Dimineralized Bone Matrix Implanted:Qty: 1 on 10/29/2020 by Terry Hickey MD at [facility] Right: Knee [employer] [id number] 03/20/2022 / [id number] / [id number] Description:8 mL CB DBM past e Allosync Demineralized Bone Matrix Ref Abs-2014-10 Implanted:Qty: 1 on 10/29/2020 by Terry Hickey MD at [facility] Right: Knee [employer] [id number] 05/20/2022 / [id number] / [id number] Description:allosync CB DBM putty Procedures Procedure Name [...] RNA Detection and Quantitation by Real-Time Reverse Permit Technician-PCR (RT-PCR). Current interpretive data was last revised on 2016. Mariola Yoder MD LAB BLOOD ORDERAB LES Final Result CDR HISTORICAL RESULTS from Last 3 Months or Most Recently Relevant to Health Maintenance Insurance [facility] CHOICE PLUS [facility] HMO/PPO Address: [address] [place] [address] [facility] CHOICE PLUS [facility] HMO/PPO Address: [address] [place] [address] [facility] CHOICE PLUS [facility] HMO/PPO Address: [address] [address] [place] [address] IDPA Advance Directives For more information, please contact: [phone] Documents on File Type Date Recorded Patient Power Digger Operator Expl anation ADVANCE DIRECTIVE 10/29/2020 11:53 AM Care Teams Arborist Climber Relationship Specialty [place] [address] [address] [facility] [address] [place] [address] PCP - General Family Medicine 09/05/19 [place] [address] [address] [facility] [address] [place] [address] Consulting Physician Endocrinology 12/29/21 Myriam Whaley CNM [address] [address] [facility] [address] [place] [address] Nurse Practitioner Obstetrics and Gynecology 12/29/21 Sal Ferraro MD [address] [place] [address] Consulting Physician Internal Medicine 01/19/22
--- OUTSIDE RECORDS SUMMARY | 2025-01-14 06:04 | XMS_ITS | Clinical Summary ---
Author Organization [facility] Address [address] [place] [address] Phone Care Team Providers Care Community Program Assistant Name Role Phone Unavailable Primary Care Provider Unavailabl e Medications vit no.[id number] ic 27 mg iron- 1 mg Tablet [...] Encounters Date Type Department Care Team Description 01/09/2025 External Device Data STL ABSTRACTION Provider, Abstract 01/09/2025 External Device Data STL ABSTRACTION Provider, Abstract 12/29/2024 External Device Data STL ABSTRACTION Provider, Abstract 12/28/2024 External Device Data STL ABSTRACTION Provider, Abstract 12/18/2024 External Device Data STL ABSTRACTION Provider, Abstract 11/20/2024 External Device Data STL ABSTRACTION Provider, Abstract 10/30/2024 8:25 AM ASSESSMENT ANALYST - 10/30/2024 11:59 PM ASSESSMENT ANALYST Hospital Encounter [facility] [place] [address] [place] [address] Liborio Rocha MD Discharge Disposition: Home or Self Care from [...] 06/19/2012 03/22/2012, 12/20/2011 CERVICAL CANCER SCREENING 2020 PAP SMEAR 2020 PAP SMEAR 2020 INFLUENZA VACCINE (#1) 2024 , 07/27/2019, 09/25/2018 COVID-19 Vaccine ( season) 2024 01/17/2021, 12/25/2020 DTAP/TDAP/TD VACCINES (9 - Td or Tdap) 09/07/2029 09/07/2019, 10/26/2016, 12/20/2011, Additional history exists HEPATITIS B VACCINES Completed 10/10/2000, 03/07/2000, 01/04/2000, Additional history exists PNEUMOCOCCAL VACCINE 0-49 YEARS Aged Out No longer eligible based on patient's age to complete this topic RSV VACCINE (60+ or ) (No Doses Required) Completed Procedures Procedure Name Priority Date/Time Associated Diagnosis Comments US OB FOLLOW UP + TV Routine 10/30/2024 8:57 AM ASSESSMENT ANALYST Low-lying placenta in second trimester History of pre-eclampsia from Last 3 Months Results * US OB FOLLOW UP + TV (10/30/2024 8:57 AM ASSESSMENT ANALYST) Anatomical Region Laterality Modality Pelvis Ultrasound 10/30/2024 8:33 AM ASSESSMENT ANALYST Narrative 10/30/2024 9:02 AM ASSESSMENT ANALYST STL FOLLOW UP ----- Pat. Name: DOMI SLADE Study Date: 10/30/2024 8:33am Pat. NO: [id number] Referring MD: DENNYS FRAGOSO MD Site: [facility] Counsellor: Franci Shepherd RDMS : 2000 Age: 24 ----- INDICATION ----- Screening Follow-Up Hyperthyroidism Complicating Antepartum Complications, Other Specified Anxiety, Maternal Maternal Obesity (BMI>40) Complicating CODING ----- Diagnoses Z3A.28: Weeks of gestation O99.213: Obesity complicating O99.343: Other mental disorders complicating O99.891: Other specified diseases and conditions complicating O99.283: Other endocrine, nutritional and metabolic diseases complicating Z36.2: Encounter for other screening follow-up Procedures 11595: Ultrasound, uterus, real time with image documentation 76565: Ultrasound, uterus, real time with image documentation, follow up, transabdominal approach per fetus HISTORY ----- OB History 4. Para 2 T2A1L2 MATERNAL ASSESSMENT ----- Physical Exam Initial weight 86 kg, 190 lb. Initial BMI 31.62 kg/m METHOD ----- Transabdominal ultrasound examination, Transabdominal and [...] d Assigned ANU: 01/18/2025 BIOMETRY ----- BPD 72.9 mm 29w 2d 60% Hadlock OFD 102.7 mm 33w 2d >99% Stephenie HC 280.2 mm 30w 5d 81% Hadlock AC 251.3 mm 29w 2d 67% Hadlock Femur 53.2 mm 28w 2d 26% Hadlock HC / AC 1.12 66% Nicolaides Weight Calculation: EFW 1,336 g 28w 5d 57% Hadlock EFW (lb,oz) 2 lb 15 oz EFW by Hadlock ([id number]) Head / Face / Neck Biometry: Organ Fixer 4.1 mm Extremities / Bony Struc Biometry: FL [...] Head / Neck Cranium. Lateral ventricles. Cavum septi pellucidi. Heart / Thorax Diaphragm. Abdomen Stomach. Kidneys. Bladder. GROWTH OVERVIEW ----- Exam date GA BPD (mm) HC (mm) AC (mm) FL (mm) HL (mm) EFW (g) 08/30/2024 19w 6d 44.5 33% 170.7 33% 142.5 36% 31.3 37% 30.1 56% 305 34% 09/27/2024 23w 6d 57.1 29% 217.3 29% 189.5 36% 42.3 35% 623 36% 10/30/2024 28w 4d 72.9 60% 280.2 81% 251.3 67% 53.2 26% 1,336 57% COMMENT ----- Patient's name and date of were verified by the slot router prior to the exam. Claudia DIAZ was present for the transvaginal ultrasound and served as a traveling operator. IMPRESSION ----- 1. Single living fetus with [...] 10/30/2024 STL FOLLOW UP ----- Pat. Name:Petr SLADE Date:10/30/2024 8:33am Pat. NO: [id number] MD:DENNYS FRAGOSO [facility] RDMS :2000Age:24 ----- INDICATION ----- Screening Follow-Up Hyperthyroidism Complicating Antepartum Complications, Other Specified Anxiety, Maternal Maternal Obesity (BMI>40) Complicating CODING ----- Diagnoses Z3A.28: Weeks of gestation O99.213: Obesity complicating O99.343: Other mental disorders complicatingpregnancy O99.891: Other specified diseases and conditionscomplicating O99.283: Other endocrine, nutritional andmetabolic diseases complicating Z36.2: Encounter for other screeningfollow-up Procedures 10858: Ultrasound, uterus, real time withimage documentation 52317: Ultrasound, uterus, real time withimage documentation, follow up, transabdominal approach per fetus HISTORY ----- OB History 4. Para 2 T2A1L2 MATERNAL ASSESSMENT ----- Physical Exam Initial weight 86 kg, 190 lb. Initial BMI 31.62kg/m METHOD ----- Transabdominal ultrasound examination, Transabdominal and transvaginalultrasound examination ----- Rueda . Number of fetuses: 1 DATING ----- GA by prior [id number] w + 4 d ANU by prior [...] 2 lb 15 oz EFW by Hadlock ([id number]) Head / Face / Neck Biometry: Organ Fixer 4.1mm Extremities / Bony Struc Biometry: FL [...] and date of were verified by the slot router prior tothe exam. Claudia DIAZ was present [...] Rocha MD US ORDERABLES Final Re sult from Last 3 Months Insurance [employer] CHOICE POS
--- OUTSIDE RECORDS SUMMARY | 2025-01-14 06:04 | XMS_ITS | Encounter Summary ---
Author Organization [facility] Address [address] [facility] [address] [place] [address] Care Team Providers Care Professor Of Poultry Science Name Role Phone Liborio Shea JUMPBASTING FACING BASTER Primary Care Provider [phone] Mariola Yoder MD Primary Care Pro vider Liborio Shea JUMPBASTING FACING BASTER Primary Care Provider [phone] Mariola Yoder MD Primary Care Pro vider No, Physician Primary Care Provider [phone] Liborio Shea JUMPBASTING FACING BASTER Primary Care Provider [phone] Antonio Ortiz MD Unavailable [phone] Myriam Whaley [facility] Unavailable [phone] Sal Ferraro MD Unavailable [phone] Encounter Details Date Type Department Care Team (Latest Contact Info) Description 02/08/2017 Orders Only [place] [facility] Provider, MD Dejuan [address] [place] [id number] Social History Tobacco Use Types Packs/Day Years Used Date Smoking Tobacco: Never Alcohol Use Standard Drinks/Week Comments No 0 (1 standard drink = 0.6 oz pur e alcohol) Comments Unknown Sex and Gender Information Value Date Recorded Sex Assigned at Not on file Legal Sex Female 4:08 AM CHANGE MANAGEMENT Gender Identity Female 05/20/2021 11:53 AM CDT [...] documented as of this encounter Care Teams Professor Of Poultry Science Relationship Specialty [place] [address] [address] [place] [address] PCP - General 01/21/17 03/02/17 Mariola Yoder MD [address] [place] [address] TACO Craven [facility] [address] [place] [address] PCP - General 03/03/17 07/24/17 [place] [address] [address]AMA BLDG 2 [address] [place] [address] PCP - General Family Medicine 07/25/17 02/25/18 Mariola Yoder MD [address] [place], [place] [address]SOPHIA Craven [facility] [address] [place] [address] PCP - General 02/26/18 06/08/19 No, Physician PCP - General 06/09/19 09/04/19 Liborio Shea, JUMPBASTING FACING BASTER [address] [address] [place] [address] PCP - General Family Medicine 09/05/19 [place] [address] [address] [place] [address] Consulting Physician Endocrinology 12/29/21 Myriam Whaley CNM [address] [address] Nurse Practitioner Obstetrics and Gynecology 12/29/21 Sal Ferraro MD [address] [place] [address] Consulting Physician Internal Medicine 01/19/22 documented as of this encounter
--- NOTE | 2025-01-14 06:41 | LDADM ---
This patient, Bridgett Sam, was admitted to Labor/Delivery/Recovery 104 on 01/14/25 at 05:57. Plans for labor, pain management and were discussed with patient. Patient/family oriented to hospital policies and general routines including ID bracelet, bed and alarms, visiting hours, pain management, procedures, bathroom and other care routines, personal items, smoking policy, room service/diet and guest tray routines, infant security routines, and visiting hours. Patient/Family are encouraged to report perceived risks to care and to ask questions if they do not understand what they are told or what they should do. See OBIX for further documentation.
[2025-01-14 06:44] LABS: Basophils Percent Auto 0.4 % (0.2-1.2); Eosinophils Absolute Auto 0.1 K/mm3 (0-0.3); Eosinophils Percent Auto 0.6 % (0-4.4); Hematocrit 30.1 % (37.0-47.0); Hemoglobin 9.5 g/dL (12.0-15.0); Immature Granulocyte Absolute 0.06 K/mm3 (0.00-0.031); Immature Granulocyte Percent A 0.6 % (0-0.5); Lymphocytes Percent Auto 22.3 % (18.3-44.2); Mean Corpuscular HGB Conc 31.6 g/dl (32-36); Mean Corpuscular Hemoglobin 24.2 pg (26-34); Mean Corpuscular Volume 76.6 fl (80-100); Mean Platelet Volume 10.7 fl (7.4-10.4); Monocytes Absolute Auto 0.7 K/mm3 (0.1-0.6); Monocytes Percent Auto 7.3 % (2.6-8.5); Neutrophils Absolute Auto 6.5 K/mm3 (1.3-6.7); Neutrophils Percent Auto 68.8 % (45.5-73.1); Platelet Count Result 236 k/mm3 (150-375); Red Blood Count 3.93 M/mm3 (4.2-5.4); Red Cell Distribution Width 13.5 % (11.5-14.5); White Blood Count 9.4 K/mm3 (4.5-10.0)
--- NOTE | 2025-01-14 06:54 | P.PNAN_ITS ---
Anes - Eval Pre Procedure Procedure: labor epidural Date/Time: 01/14/25 06:54 Surgeon: sharon Preop Diagnosis: pain during labor Pre Op Diagnosis: IOL Patient Data Age: 24 Gender: F Height: Weight: Last Vital Signs Pulse 123 H 01/14/25 06:46 BP 121/83 01/14/25 06:46 Allergies Allergy/AdvReac Type Severity Reaction Status Date / Time adhesive tape AdvReac Mild rash Verified 01/14/25 06:42 Home Medications ?Medication ?Instructions ?Recorded ?Confirmed ?Type aspirin 81 mg capsule 81 mg PO DAILY 11/21/24 01/14/25 History cholecalciferol (vitamin D3) 25 1,000 unit PO DAILY 11/21/24 01/14/25 History mcg (1,000 unit) tablet (Vitamin D3) vit no.95-ferrous 1 tablet PO DAILY 11/21/24 01/14/25 History fumarate 28 mg-folic acid 800 mcg tablet () Laboratory Tests 01/14/25 06:36 WBC 9.4 K/mm3 (4.5-10.0) RBC 3.93 L M/mm3 (4.2-5.4) Hgb 9.5 L g/dL (12.0-15.0) Hct 30.1 L % (37.0-47.0) MCV 76.6 L fl (80-100) MCH 24.2 L pg (26-34) MCHC 31.6 L g/dl (32-36) RDW 13.5 % (11.5-14.5) Plt Count 236 k/mm3 (150-375) MPV 10.7 H fl (7.4-10.4) Immature Gran % (Auto) 0.6 H % (0-0.5) Neut % (Auto) 68.8 % (45.5-73.1) Lymph % (Auto) 22.3 % (18.3-44.2) [place] % (Auto) 7.3 % (2.6-8.5) Eos % (Auto) 0.6 % (0-4.4) Baso % (Auto) 0.4 % (0.2-1.2) Lymph # (Auto) 2.10 K/mm3 (0.9-3.2) [place] # (Auto) 0.7 H K/mm3 (0.1-0.6) Eos # (Auto) 0.1 K/mm3 (0-0.3) Baso # (Auto) 0.0 K/mm3 (0.0-0.1) Abs Immat Gran (auto) 0.06 H K/mm3 (0.00-0.031) Absolute Neuts (auto) 6.5 K/mm3 (1.3-6.7) Absolute Nucleated RBC 0.000 K/mm3 (0.0-0.012) Nucleated RBC % 0.0 % (0.0-0.2) HIV 1&2 Ab/P24 Ag 4thGn Pending Patient hx anesthesia problems: none Family hx anesthesia problems: none Results Review: All pre-operative results and documents have been reviewed as part of the pre- operative evaluation. [facility] Past Medical History Medical History (Updated 01/14/25 @ 06:56 by Faby Jensen CRNA) PIH ( induced hypertension) Post depression Depression Anxiety BMI 29.0-29.9,adult BMI 27.0-27.9,adult Right ACL tear No pertinent past medical history Surgical History Surgical History H/O anterior cruciate ligament surgery first one in 2015 - central third patellar tendon revision in 2017 - hamstrings Family History Family History Father Cancer Grandparent Cancer Hypertension Social History Social History Smoking status: Never smoker Alcohol intake: never Substance use: never Living arrangements: with family Gender identity (if verbalized by the patient): Female Spiritual care concerns: No Exam Day of Procedure 01/14/25 06:54
[2025-01-14] MEDS: LACTATED RINGERS 1,000 ML 125 ML IV CONT ×3 (07:01→11:53)
[2025-01-14] MEDS: AMPICILLIN 2 GM/NS 100 ML 2 GM/100 ML BAG IVPB (07:02)
[2025-01-14] MEDS: OXYTOCIN 30 UNITS/NS 500 ML 30 UNITS/500 ML BAG IV CONT (07:02)
[2025-01-14 07:28] LABS: Syphilis IgG/IgM Antibody Negative (Negative)
[2025-01-14 07:35] LABS: HIV 1/2 Ab P24 Ag Result Negative (Negative)
--- NOTE | 2025-01-14 07:44 | WPDOBADMIT ---
Obstetrics - Admit Note Admission Note: record reviewed. No pertinent additions to the history and/or any subsequent changes in the physical findings that are not consistent with the expected course of the were found. Additions to the history and/or subsequent changes in the physical findings follow. Here for MIL. Cervix 2/50/-2 AROM with clear fluid. Pitocin per protocol. FHTs Reactive
[2025-01-14] MEDS: AMPICILLIN 1 GM/NS 50 ML 1 GM/50 ML BAG IVPB (11:53)
--- NOTE | 2025-01-14 13:37 | PM.OBPRVD ---
OB - Vaginal Delivery Note Procedure Delivery date: 01/14/25 Events: Elective Induction of Labor Induction method: AROM and Per Pitocin Protocol Delivery monitor: External FHT and External Uterine Route of delivery: Laceration Description: Superficial Specimen: No Quantitative Blood Loss (ml): 300 Anesthesia type: None Disposition: Floor Complications: No immediate complications Baby Date of : 01/14/25 Gestational Age by Date: 39 gender: Female presentation: vertex position: Right Occiput Anterior Placenta delivery description: Spontaneous Cord Vessel Description: 3 Vessels and Delayed Cord Clamping score one minute: 8 score five minutes: 9
--- NOTE | 2025-01-14 13:38 | P.DS_ITS ---
DS: Admitting Diagnosis Discharge Date 01/15/25 Admitting Diagnosis IUP 39 wks for CHRISTINE DS: Discharge Diagnosis Discharge Diagnosis (1) (normal spontaneous vaginal delivery): Code(s): O80 - Encounter for full-term uncomplicated delivery Status: Acute OB - DS: Summary OB Procedures : Ultrasound OB Procedures Intrapartum: Spontaneous Vag Delivery OB Procedures: : None Peripartum Data Infant Delivery Method: Natural Vaginal Laceration Description: Superficial complications: none Status at Discharge Functional status at discharge: independent ambulation Overall status at discharge: patient is progressing back to baseline Time Spent with Patient Time attestation: Total time spent providing and/or coordinating discharge services: DS: Data Data Completed and Pending Labs on day of discharge: Labs from last 24 hours 01/14/25 06:36 WBC 9.4 RBC 3.93 L Hgb 9.5 L Hct 30.1 L MCV 76.6 L MCH 24.2 L MCHC 31.6 L RDW 13.5 Plt Count 236 MPV 10.7 H Immature Gran % (Auto) 0.6 H Neut % (Auto) 68.8 Lymph % (Auto) 22.3 [place] % (Auto) 7.3 Eos % (Auto) 0.6 Baso % (Auto) 0.4 Lymph # (Auto) 2.10 [place] # (Auto) 0.7 H Eos # (Auto) 0.1 Baso # (Auto) 0.0 Abs Immat Gran (auto) 0.06 H Absolute Neuts (auto) 6.5 Absolute Nucleated RBC 0.000 Nucleated RBC % 0.0 Syphilis IgG/IgM Ab Negative HIV 1&2 Ab/P24 Ag 4thGn Negative Blood Type O Positive Antibody Screen Negative Discharge Plan Discharge Attending physician on discharge: Emily Kemp Discharging Clinician: Emily Kemp Anticipated Discharge Date/Time: 01/16/25 13:39 Patient Disposition: Home, Self-Care Activity: may shower and pelvic rest Diet: regular Patient Instructions: Antibiotic Form Patient Language: Comoran Stand Alone Forms: General Discharge Information Follow-up/Referrals: Emily Kemp MD [Physician] - 6 Weeks Discharge Medications: Continued PNV cmb#95-ferrous fumarate-FA [] 28 mg iron- 800 mcg tablet 1 tablet PO DAILY cholecalciferol (vitamin D3) [Vitamin D3] 25 mcg (1,000 unit) tablet 1,000 unit PO DAILY Discontinued aspirin 81 mg capsule 81 mg PO DAILY Date of admission: 01/14/25 05:57 Primary Care Provider: PHYSICIAN,RAILCAR CARPENTER Admitting Provider: Emily Kemp Attending physician on admission: Emily Kemp Condition: Stable
[2025-01-14] MEDS: OXYTOCIN 30 UNITS/NS 500 ML 30 UNITS/500 ML BAG 125 UNITS IV CONT (13:55)
[2025-01-14] MEDS: METHYLERGONOVINE MALEATE 0.2 MG/ML VIAL IM (15:19)
[2025-01-14] MEDS: WITCH HAZEL 40 PADS 1 PAD TOPICAL (15:55)
[2025-01-14] MEDS: ACETAMINOPHEN 325 MG TABLET 650 MG PO (15:55)
[2025-01-14] MEDS: BENZOCAINE 20% AER SPR (*SP) 56 GM CAN 1 SPRAY TOPICAL (15:56)
--- NOTE | 2025-01-14 16:14 | OBPPTRN ---
Patient transferred to post room #284 via wheelchair. Support person present. Oriented to unit, room, information board, rooming in, admission packet and security measures. Patient verbalizes understanding.
--- NOTE | 2025-01-14 17:57 | PC.NURSE ---
1655. Introductions were made, then consulted with patient to assess needs related to . She reports she had no concerns with low supply but she did choose to stop both of those children at 1 & 4 months old. Discussed with mother her plans to feed her and the experience so far. Encouraged mother to express any questions or concerns she has regarding feedings. Advised her to call out for a latch check or if she needs assistance waking or positioning baby. Reviewed the blue feeding worksheet for required output and feeding at least 8-12 times every 24 hours. Observed mother latching infant to the left breast in cross cradle position. was able to maintain an appropriate latch. Mother declines nipple pain/discomfort throughout feeding. Encouraged mother to keep awake and nursing at the breast for 15 minutes. Mother taught to listen for swallowing during feedings. Reviewed using the blue feeding sheet to record time and duration of feeding. Mother voiced understanding of the education shared, to call for assistance if the does not latch or if there is discomfort with . Resources provided for inpatient and outpatient services with the feeding sheet, mom/baby guide, admission packet and name/number written on the communication board. Mother voiced understanding of information and will call if there is a request for assistance. Reported to the Primary RN.
[2025-01-15] MEDS: IBUPROFEN 600 MG TABLET PO (04:17)
[2025-01-15 04:43] VITALS: BP 129/90; PULSE 69; RESP 16; TEMP 36.4; O2SAT 100
[2025-01-15 06:16] LABS: Hematocrit 29.9 % (37.0-47.0); Hemoglobin 9.1 g/dL (12.0-15.0)
--- NOTE | 2025-01-15 06:25 | PM.OBPNVD ---
OB - PN: Subj Subjective Date/time seen: 01/15/25 06:25 Patient comments: no complaints, pain well controlled and other (prefers dc even though would be late) [place] baby status: doing well OB - PN: Obj Data Labs 01/15/25 04:19 Labs: Laboratory Results - last 24 hr 01/14/25 01/15/25 06:36 04:19 WBC 9.4 RBC 3.93 L Hgb 9.5 L 9.1 L Hct 30.1 L 29.9 L MCV 76.6 L MCH 24.2 L MCHC 31.6 L RDW 13.5 Plt Count 236 MPV 10.7 H Immature Gran % (Auto) 0.6 H Neut % (Auto) 68.8 Lymph % (Auto) 22.3 [place] % (Auto) 7.3 Eos % (Auto) 0.6 Baso % (Auto) 0.4 Lymph # (Auto) 2.10 [place] # (Auto) 0.7 H Eos # (Auto) 0.1 Baso # (Auto) 0.0 Abs Immat Gran (auto) 0.06 H Absolute Neuts (auto) 6.5 Absolute Nucleated RBC 0.000 Nucleated RBC % 0.0 Syphilis IgG/IgM Ab Negative HIV 1&2 Ab/P24 Ag 4thGn Negative Blood Type O Positive Antibody Screen Negative OB - PN A/P Plan day: 1 Plan: routine care, discharge home, follow up 6 weeks and other (plans condoms) Time Spent With Patient Time: Total time spent is greater than 50% in coordination of care (as documented) at patient's floor/unit and/or counseling patient: Exam : Bimanual exam- vagina & uterus: other (Uterus firm, nt @U)
[2025-01-15] MEDS: POLYSACCHARIDE IRON COMPLEX 150 MG CAPSULE PO (08:11)
[2025-01-15] MEDS: MULTIVIT/MIN/PREN/FOL AC/IRON TABLET 1 TAB PO (08:11)
[2025-01-15] MEDS: DOCUSATE SODIUM 100 MG CAPSULE PO (08:11)
[2025-01-15 08:16] VITALS: BP 117/79; PULSE 88; RESP 16; TEMP 36.9; O2SAT 99
--- NOTE | 2025-01-15 08:45 | PC.NURSE ---
Mother verbalizes she is able to independently latch with appropriate positioning and alignment. She denies any nipple discomfort and is responsively . Infant is currently meeting outcomes for weight, output, jaundice, blood sugar and feeding frequencies of 8-12 times in 24 hours. Mother declines any additional assistance or education at this time. Mother is encouraged to call for assistance if her infant doesn?t latch, pain with latching, questions or concerns. RN name/number on communication board. Mother voiced understanding of information shared along with the mom/baby guide for an additional resource. Reported to the Primary RN.
[2025-01-15 12:08] VITALS: BP 122/79; PULSE 96; RESP 16; TEMP 37.1; O2SAT 98
[2025-01-16 10:17] VITALS: BP 132/89; PULSE 92; RESP 20; TEMP 36.8; O2SAT 100
== END 2025-01-15 15:57 | disposition home or self-care (01) | DRG 807 ==
LOC: ANHLDR 13:40 → ANHOB2 16:17
PROVIDERS: Admitting Provider Obstetrics & Gynecology Gynecology; Visit Provider Obstetrics & Gynecology Gynecology
DX: O62.3 Precipitate labor (principal); Z37.0 Single live birth; O99.824 Streptococcus B carrier state complicating childbirth; O70.0 First degree perineal laceration during delivery; Z3A.39 39 weeks gestation of pregnancy
CPT/HCPCS: 36415; 85014; 85018; 85025; 86593; 86703; 86850; 86900; 86901; A9270; G0432; J0290; J2210; J2590; J2795; J7120

== ENCOUNTER 2025-06-14 10:45 | Emergency (ER) | payer OTHER, SELFPAY ==
--- OUTSIDE RECORDS SUMMARY | 2025-06-14 10:48 | XMS_ITS | Clinical Summary ---
Author Organization [facility] Address [address] [place] [address] Phone Care Team Providers Care Slip Presser Name Role Phone Unavailable Primary Care Provider Unavailabl e Medications vit no.[id number] ic 27 mg iron- 1 mg Tablet [...] of high-risk , second trime ster 07/20/2024 Encounters Date Type Department Care Team Description 05/08/2025 External Device Data [facility] ABSTRACTION Provider, Abstract 05/07/2025 External Device Data [facility] ABSTRACTION Provider, Abstract 04/09/2025 External Device Data [facility] ABSTRACTION Provider, Abstract 03/19/2025 External Device Data [facility] ABSTRACTION Provider, Abstract 03/14/2025 External Device Data [facility] ABSTRACTION Provider, Abstract from Last 3 Months Social History Tobacco Use Types Packs/Day Years Used Date Smoking Tobacco: Never Assessed Comments No Sex and Gender Information Value [...] 9:04 AM CDT Height 165.1 cm (5' 5) 07/20/2024 9:04 AM CDT Body Mass Index 32.28 07/20/2024 9:04 AM CDT Plan of Treatment Health Maintenance Due Date Last Done Comments HPV VACCINES (3 - 2-dose series) 06/19/2012 03/22/20 12, 12/20/2011 CERVICAL CANCER SCREENING 2020 HPV/Cotest (21-) 2020 PAP SMEAR 2020 COVID-19 Vaccine ( - 2023-2 5 season) 2024 01/17/2021, 12/25/2020 INFLUENZA VACCINE (#1) 2025 , 07/27/2019, 09/25/2018 DTAP/TDAP/TD VACCINES (9 - T d or Tdap) 09/07/2029 09/07/2019, 10/26/2016, 12/20/2011, Additional history exists HEPATITIS B VACCINES Completed 10/10/2000, 03/07/2000, 01/04/2000, Additional history exists Insurance [employer] MANAGED CHOICE Member Subscriber Plan / Payer (Ef fective 2024-Present) Name:Bridgett Sam Relation to Subscriber:Spouse Name:Russ Sam Date of :1997 (Home) Address: [address] [place] [address] Payer ID:[id number] (NAIC) Type:POS Address: [facility] [id number] [place] [id number]
--- OUTSIDE RECORDS SUMMARY | 2025-06-14 10:48 | XMS_ITS | Clinical Summary ---
Author Organization [facility] Address [address] [place] [address] Care Team Providers Care Tool Maker Apprentice Name Role Phone Liborio Shea NP Primary Care Provider Antonio Ortiz MD Unavailable [phone] Myriam Whaley [facility] Unavailable [phone] Sal Ferraro MD Unavailable Allergies Active Allergy [...] therapy Assessment & Plan (12/29/2021 1:12 PM MARKETING SERVICES COORDINATOR): Patient diagnosed with hyperthyroidism 03/2021 most likely [...] patient to make an appointment with highway painter helper - follow-up in 4 weeks Assessment & Plan (12/01/2021 8:36 AM MARKETING SERVICES COORDINATOR): Patient diagnosed with hyperthyroidism 03/2021 most likely [...] patient to make an appointment with highway painter helper - follow-up in 4 weeks Hyperthyroidism 05/20/2021 [...] (09/16/2020): Added automatically from request for surgery [id number] Gestational hypertension affecting second pregna ncy 09/13/2019 [...] Hx Other Medical knee surgery; C omments: [facility] 04/30/2016 -; Laterality: right Seasonal allergies Allergies, se asonal; Comments: [facility] 04/30/2016 - Allergic ACL graft tear, subsequent encounter 09/16/2020 Added automatically from request for surgery [id number] Presence of intrauterine con traceptive device 02/08/2017 [...] on file Legal Sex Female 4:08 AM MARKETING SERVICES COORDINATOR Gender Identity Female 05/20/2021 11:53 AM CDT [...] 10:31 AM CDT Height 165.1 cm (5' 5) 04/01/2022 10:3 1 AM CDT Body Mass Index 30.75 04/01/2022 10:31 AM CDT Plan of Treatment Health Maintenance Due Date Last Done Comments Cervical Cancer Screening 1999 HPV Vaccines (3 - 3-dose series) 06/19/2012 03/22/2012, 12/20/2011, 12/20/2011 Regular Well Visit/Exam 18-64 07/31/2022 07/31/2021, 07/31/2021 Depression Screening 04/01/2023 04/01/2022, 12/29/2021, 12/01/2021, Additional history exists Covid-19 Vaccine ( season) 2024 01/17/2021, 12/25/2020 Influenza Vaccine (#1) 2025 , 07/27/2019, 07/27/2019, Additional history exists DTaP/Tdap/Td Vaccine ( Td or Tdap) 09/07/2029 09/07/2019, 10/26/2016, 12/20/2011, Additional history exists Hepatitis B Screening Completed 10/10/2000 , 03/07/2000, 01/04/2000, Additional history exists Varicella Vaccines Completed 02/23/2012, 03/28/2002 Hepatitis C Screening Completed 06/24/2016 Pneumococcal vaccine <65 Aged Out No longer eligible based on patient's age to complete this topic Medical Devices Implanted Type Area Podiatric Aide Device Identifier Shelf Expiration Date Model / Serial / Lot Allosync Dimineralized Bone Matrix Implanted:Qty: 1 on 10/29/2020 by Terry Hickey MD at [facility] Right: Knee [employer] [id number] 03/20/2022 / [id number] / [id number] Description:8 mL CB DBM past e Allosync Demineralized Bone Matrix Ref Abs-2014-10 Implanted:Qty: 1 on 10/29/2020 by Terry Hickey MD at [facility] Right: Knee [employer] [id number] 05/20/2022 / [id number] / [id number] Description:allosync CB DBM putty Procedures Procedure Name [...] RNA Detection and Quantitation by Real-Time Reverse Tax Specialist-PCR (RT-PCR). Current interpretive data was last revised on 2016. Mariola Yoder MD LAB BLOOD ORDERAB LES Final Result CDR HISTORICAL RESULTS from Last 3 Months or Most Recently Relevant to Health Maintenance Insurance [facility] CHOICE [facility]US [facility] HMO/PPO Address: [address] [place] [id number] [facility] CHOICE [facility]US [facility] HMO/PPO Address: [address] [place] [address] [facility] CHOICE [facility]US [facility] HMO/PPO Address: [address] [address] [place] [address] IDPA Advance Directives For more information, please contact: [phone] Documents on File Type Date Recorded Patient Neurology Epilepsy Physician Expl anation ADVANCE DIRECTIVE 10/29/2020 11:53 AM Care Teams Tool Maker Apprentice Relationship Specialty [place] [id number] [address] [facility] [address] [place] [address] PCP - General Family Medicine 09/05/19 [place] [address] [address] [facility] [address] [place] [address] Consulting Physician Endocrinology 12/29/21 Myriam Whaley CNM [address] [address] [facility] [address] [place] [address] Nurse Practitioner Obstetrics and Gynecology 12/29/21 [place] [address] [address] [facility] [address], [place] [address] Consulting Physician Internal Medicine 01/19/22
--- OUTSIDE RECORDS SUMMARY | 2025-06-14 10:48 | XMS_ITS | Encounter Summary ---
Author Organization [facility] Address [address] [facility] [address] [place] [address] Care Team Providers Care Senior Quality Assurance Engineer Name Role Phone Liborio Shea GETTER FILLER Primary Care Provider [phone] Mariola Yoder MD Primary Care Pro vider Liborio Shea GETTER FILLER Primary Care Provider [phone] Mariola Yoder MD Primary Care Pro vider No, Physician Primary Care Provider [phone] Liborio hSea GETTER FILLER Primary Care Provider [phone] Antonio Ortiz MD Unavailable [phone] Myriam Whaley [facility] Unavailable [phone] Sal Ferraro MD Unavailable [phone] Encounter Details Date Type Department Care Team (Latest Contact Info) Description 02/08/2017 Orders Only [place] WALL INSULATION SPRAYER Provider, MD Dejuan [address] [place] [id number] Social History Tobacco Use Types Packs/Day Years Used Date Smoking Tobacco: Never Alcohol Use Standard Drinks/Week Comments No 0 (1 standard drink = 0.6 oz pur e alcohol) Comments Unknown Sex and Gender Information Value Date Recorded Sex Assigned at Not on file Legal Sex Female 4:08 AM CONSUMER LENDER Gender Identity Female 05/20/2021 11:53 AM CDT [...] documented as of this encounter Care Teams Senior Quality Assurance Engineer Relationship Specialty [place] [address] [address] [place] [address] PCP - General 01/21/17 03/02/17 Mariola Yoder MD [address] [place] [address] TACO Craven [facility] [address] [place] [address] PCP - General 03/03/17 07/24/17 [place] [address] [address] [place] [address] PCP - General Family Medicine 07/25/17 02/25/18 Mariola Yoder MD [address] [place], [place] [address]SOPHIA Craven [facility] [address] [place] [address] PCP - General 02/26/18 06/08/19 No, Physician PCP - General 06/09/19 09/04/19 Liborio Shea, GETTER FILLER [address] [address] [place] [address] PCP - General Family Medicine 09/05/19 [place] [address] [address] [place] [address] Consulting Physician Endocrinology 12/29/21 Myriam Whaley CNM [address] [address] Nurse Practitioner Obstetrics and Gynecology 12/29/21 [place] [address] [address] Consulting Physician Internal Medicine 01/19/22 documented as of this encounter
[2025-06-14 10:56] VITALS: BP 129/85; PULSE 80; RESP 16; TEMP 37.1; O2SAT 100
[2025-06-14 11:32] LABS: Hematocrit 32.9 % (37.0-47.0); Hemoglobin 9.8 g/dL (12.0-15.0); Immature Granulocyte Percent A 0.2 % (0-0.5); Lymphocytes Absolute Auto 1.73 K/mm3 (0.9-3.2); Mean Corpuscular HGB Conc 29.8 g/dl (32-36); Mean Corpuscular Hemoglobin 22.6 pg (26-34); Mean Corpuscular Volume 75.8 fl (80-100); Nucleated Red Blood Cells Absolute Auto 0.000 K/mm3 (0.0-0.012); Nucleated Red Blood Cells Perc 0.0 % (0.0-0.2); Platelet Count Result 295 k/mm3 (150-375); Red Blood Count 4.34 M/mm3 (4.2-5.4); White Blood Count 4.6 K/mm3 (4.5-10.0)
[2025-06-14 11:43] LABS: INR 1.2; Prothrombin Time 14.8 Seconds (11.1-14.7)
[2025-06-14 11:44] LABS: Partial Thromboplastin Time 28.8 Seconds (22.3-36.8)
[2025-06-14 11:51] LABS: Alanine Aminotransferase 26 U/L (6-35); Albumin Level 4.2 g/dL (3.5-5.1); Alkaline Phosphatase 94 U/L (38-126); Anion Gap 8 mmol/L (4-12); Aspartate Amino Transferase 26 U/L (14-36); Bilirubin,Total 0.6 mg/dL (0.2-1.3); Blood Urea Nitrogen 10 mg/dL (7-17); Calcium 9.2 mg/dL (8.4-10.2); Carbon Dioxide 23 mmol/L (22-30); Chloride 105 mmol/L (98-107); Estimated CRCL calculation 122 ml/min; Estimated Glomerular Filt Rate > 60; Glucose 93 mg/dL (65-110); Potassium 4.4 mmol/L (3.4-5.0); Sodium 136 mmol/L (137-145); Total Protein 7.1 g/dL (6.3-8.2)
[2025-06-14 11:53] LABS: Hypochromasia 1+; Schistocytes None Seen
--- NOTE | 2025-06-14 12:12 | ED.FEMALEGU ---
HPI - Female Genitourinary General Chief complaint: Vaginal Bleeding Stated complaint: heavy vaginal bleeding Time Seen by Provider: 06/14/25 10:55 Source: patient Mode of arrival: ambulatory Limitations: no limitations History of Present Illness HPI Narrative: This is a 24 year old female that presents to the ER for heavy vaginal bleeding. Reports this is her 1st menstrual cycle since having a child. She has been soaking through a tampon every hour. This concerned her and prompted her to be seen. Related Data Home Medications ?Medication ?Instructions ?Recorded ?Confirmed ?Last Taken ?Type cholecalciferol (vitamin D3) 25 1,000 unit PO DAILY 11/21/24 01/14/25 01/13/25 20:00 History mcg (1,000 unit) tablet (Vitamin D3) vit no.95-ferrous 1 tablet PO DAILY 11/21/24 01/14/25 01/13/25 20:00 History fumarate 28 mg-folic acid 800 mcg tablet () Allergies Allergy/AdvReac Type Severity Reaction Status Date / Time adhesive tape AdvReac Mild rash Verified 06/14/25 11:55 moxifloxacin AdvReac Confusion Verified 06/14/25 11:55 Review of Systems Review of Systems: All systems reviewed & are unremarkable except as noted in HPI and below PMFSH Past Medical History Medical History (Updated 06/14/25 @ 14:51 by Fatoumata Marin PA-C) PIH ( induced hypertension) Post depression Depression Anxiety BMI 29.0-29.9,adult BMI 27.0-27.9,adult Right ACL tear No pertinent past medical history Surgical History Surgical History H/O anterior cruciate ligament surgery first one in 2015 - central third patellar tendon revision in 2017 - hamstrings Family History Family History Father Cancer Grandparent Cancer Hypertension Social History Social History Smoking status: Former smoker Tobacco type: e-cigarettes/vaping Additional smoking assessment comments: stopped vaping at beginning of Alcohol intake: never Substance use: never Do You Feel Safe in your Home?: Yes Lack of Transportation: YES Lack of Food: Never True Current Housing: I Have Housing Concerned About Future Housing: YES Difficulty Paying Gas/Electric Bills: No Difficulty Paying for Meds: No Currently Unemployed: No Education: High School Diploma/GED Difficulty w/ Childcare or Family Care: No Living arrangements: with family Gender identity (if verbalized by the patient): Female Spiritual care concerns: No Exam Narrative: GENERAL: Well-appearing, well-nourished, and in no acute distress. HEAD: Normocephalic, atraumatic. EYES: EOMI. CHEST: No respiratory distress. HEART: Regular rate EXTREMITIES: Normal range of motion. No edema. SKIN: Warm, dry, no rash. NEURO: No focal deficits. Alert and oriented x3. PSYCH: Normal mood and affect PELVIC: Small amount of dark red blood in the vaginal vault Course Course Emergency Course: patient updated on her workup and agrees with plan of care Consultations Consultation #1: Spoke with Dr. Frank Damian about patient and workup. Patient will be started on TXA and iron supplementation. Follow-up with her SIGNAL TESTER Date: 06/14/25 Vital Signs Vital signs: Vital Signs Temperature 98.8 F 06/14/25 10:56 Pulse Rate 80 06/14/25 10:56 Respiratory Rate 16 06/14/25 10:56 Blood Pressure 129/85 06/14/25 10:56 Pulse Oximetry 100 06/14/25 10:56 Temperature 98.8 F 06/14/25 10:56 Pulse Rate 82 06/14/25 14:04 Respiratory Rate 14 06/14/25 14:04 Blood Pressure 115/82 06/14/25 14:04 Pulse Oximetry 99 06/14/25 14:04 MDM - Female Genitourinary MDM Narrative Medical decision making narrative: Patient presents to the emergency department for heavy menstrual bleeding. Her vitals are stable. Hemoglobin is 9.8 which appears stable from previous blood work. test is negative. No concerning amount of bleeding on exam currently. Spoke with Dr. Frank Damian about patient and workup. Patient will be started on TXA and iron supplementation. Follow-up with her SIGNAL TESTER Dr. Kemp Differential Diagnosis Differential diagnosis: Likely urinary tract infection and dysmenorrhea Lab Data Attestation: I reviewed the patient's lab results. 06/14/25 11:25 08/22/25 11:25 Labs: Lab Results 06/14/25 06/14/25 06/14/25 Range/Units 11:25 12:45 12:51 WBC 4.6 (4.5-10.0) K/mm3 RBC 4.34 (4.2-5.4) M/mm3 Hgb 9.8 L (12.0-15.0) g/dL Hct 32.9 L (37.0-47.0) % MCV 75.8 L (80-100) fl MCH 22.6 L (26-34) pg MCHC 29.8 L (32-36) g/dl RDW 14.1 (11.5-14.5) % Plt Count 295 (150-375) k/mm3 MPV 9.7 (7.4-10.4) fl Immature Gran % (Auto) 0.2 (0-0.5) % Neut % (Auto) 50.2 (45.5-73.1) % Lymph % (Auto) 37.6 (18.3-44.2) % Esmeralda % (Auto) 9.8 H (2.6-8.5) % Eos % (Auto) 1.3 (0-4.4) % Baso % (Auto) 0.9 (0.2-1.2) % Lymph # (Auto) 1.73 (0.9-3.2) K/mm3 Esmeralda # (Auto) 0.5 (0.1-0.6) K/mm3 Eos # (Auto) 0.1 (0-0.3) K/mm3 Baso # (Auto) 0.0 (0.0-0.1) K/mm3 Abs Immat Gran (auto) 0.01 (0.00-0.031) K/mm3 Absolute Neuts (auto) 2.3 (1.3-6.7) K/mm3 Absolute Nucleated RBC 0.000 (0.0-0.012) K/mm3 Band Neutrophils % Not Reportable Nucleated RBC % 0.0 (0.0-0.2) % Platelet Estimate Adequate (Adequate) Hypochromasia 1+ Schistocytes None seen PT 14.8 H (11.1-14.7) Seconds INR 1.2 APTT 28.8 (22.3-36.8) Seconds Sodium 136 L (137-145) mmol/L Potassium 4.4 (3.4-5.0) mmol/L Chloride 105 (98-107) mmol/L Carbon Dioxide 23 (22-30) mmol/L Anion Gap 8 (4-12) mmol/L BUN 10 D (7-17) mg/dL Creatinine 0.61 L (0.7-1.0) mg/dL Estim Creat Clear Calc 122 ml/min Estimated GFR > 60 (59 - ) Glucose 93 (65-110) mg/dL Calcium 9.2 (8.4-10.2) mg/dL Total Bilirubin 0.6 (0.2-1.3) mg/dL AST 26 (14-36) U/L ALT 26 (6-35) U/L Alkaline Phosphatase 94 (38-126) U/L Total Protein 7.1 (6.3-8.2) g/dL Albumin 4.2 (3.5-5.1) g/dL Urine Color Yellow (Yellow) Urine Appearance Cloudy H (Clear) Urine pH 6.0 (5.0-9.0) Ur Specific [place] 1.004 (1.001-1.035) Urine Protein Negative (Negative) mg/dL Urine Glucose (UA) Negative (Negative) mg/dL Urine Ketones Negative (Negative) mg/dL Ur Blood (Man) 2+ H (Negative) Urine Nitrate Negative (Negative) Urine Bilirubin Negative (Negative) Urine Urobilinogen 0.2 (<2.0) mg/dL Leukocyte Esterase Rfl Negative (Negative) LEILA/UL Urine RBC 0-2 (0-2) /hpf Urine WBC 0-5 (0-3) /hpf Ur Squamous Epith Cells None seen (Few) /hpf Urine Bacteria None seen /hpf Urine Casts 0-2 POC Urine HCG, Qual Negative (Negative) Blood Type O Positive Antibody Screen Negative Critical Care Time Critical Care Time Critical Care Time: No Discharge Plan Discharge Clinical Impression: Abnormal uterine bleeding (AUB) Anemia Qualifiers: Anemia type: unspecified type Qualified Code(s): D64.9 - Anemia, unspecified Patient Disposition: Home Condition: Stable Instructions: Abnormal (Dysfunctional) Uterine Bleeding (ED), Anemia (ED) Additional Instructions: Return to the ER if you experience fever, abdominal pain with nausea and vomiting, you are unable to keep down liquids or solids, worsening bleeding, or any other symptoms that are concerning to you Take iron supplementation as prescribed. Take tranexamic acid as prescribed Follow up with your SIGNAL TESTER Patient Language: Belgian Prescriptions: New tranexamic acid 650 mg tablet 1,300 mg PO Q8H 5 Days Qty: 30 0RF ferrous sulfate 325 mg (65 mg iron) tablet,delayed release (DR/EC) 325 mg PO Q48H Qty: 20 0RF No Action PNV no.95-ferrous fumarate-FA [] 28 mg iron- 800 mcg tablet 1 tablet PO DAILY cholecalciferol (vitamin D3) [Vitamin D3] 25 mcg (1,000 unit) tablet 1,000 unit PO DAILY Follow-up/Referrals: Emily Kemp MD [Physician, SIGNAL TESTER] PHYSICIAN,PORTFOLIO CONSULTANT [Primary Care Provider, Internal Medicine]
[2025-06-14 12:52] LABS: BEDSIDEPREGUCG Negative (Negative)
[2025-06-14 12:54] LABS: Add Urine Microscopic? YES; Appearance Urine Cloudy (Clear); Glucose Urine UA Negative (Negative); Leukocyte Esterase Ur Negative LEU/UL (Negative); Nitrate Urine Negative (Negative); Non Pathogenic Casts 0-2; Specific Grav Ur 1.004 (1.001-1.035)
--- OUTSIDE RECORDS SUMMARY | 2025-06-14 13:07 | XMS_ITS | Encounter Summary ---
Author Organization [facility] Address [address] [facility] [address] [place] [address] Care Team Providers Care Lease Analyst Name Role Phone Liborio Shea RESEARCH SUPPORT SPECIALIST Primary Care Provider [phone] Mariola Yoder MD Primary Care Pro vider Liborio Shea RESEARCH SUPPORT SPECIALIST Primary Care Provider [phone] Mariola Yoder MD Primary Care Pro vider No, Physician Primary Care Provider Liborio Shea RESEARCH SUPPORT SPECIALIST Primary Care Provider [phone] Antonio Ortiz MD Unavailable [phone] Myriam Whaley [facility] Unavailable [phone] Sal Ferraro MD Unavailable [phone] Encounter Details Date Type Department Care Team (Latest Contact Info) Description 02/08/2017 Orders Only [place] HELICOPTER DISPATCHER Provider, MD Dejuan [address] [place] [address] Social History Tobacco Use Types Packs/Day Years Used Date Smoking Tobacco: Never Alcohol Use Standard Drinks/Week Comments No 0 (1 standard drink = 0.6 oz pur e alcohol) Comments Unknown Sex and Gender Information Value Date Recorded Sex Assigned at Not on file 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 Gender Identity Female 05/20/2021 11:53 AM CDT [...] documented as of this encounter Care Teams Lease Analyst Relationship Specialty [place] [id number] [address] [place] [address] PCP - General 01/21/17 03/02/17 Mariola Yoder MD [address] [place] [address] TACO Craven [facility] [address] [place] [address] PCP - General 03/03/17 07/24/17 [place] [address] [address] [place] [address] PCP - General Family Medicine 07/25/17 02/25/18 Mariola Yoder MD [address] [place], [place] [address]SOPHIA Craven [facility] [address] [place] [address] PCP - General 02/26/18 06/08/19 No, Physician PCP - General 06/09/19 09/04/19 Liborio Shea, RESEARCH SUPPORT SPECIALIST [id number] [address] [place] [address] PCP - General Family Medicine 09/05/19 [place] [address] [address] [place] [address] Consulting Physician Endocrinology 12/29/21 Myriam Whaley CNM [address] [address] Nurse Practitioner Obstetrics and Gynecology 12/29/21 [place] [address] [address] [address] Consulting Physician Internal Medicine 01/19/22 documented as of this encounter
--- OUTSIDE RECORDS SUMMARY | 2025-06-14 13:07 | XMS_ITS | Clinical Summary ---
Author Organization [facility] Address [address] [place] [address] Phone Care Team Providers Care Chick Grader Name Role Phone Unavailable Primary Care Provider Unavailabl e Medications vit no.[id number] ic 27 mg iron- 1 mg Tablet [...] Name:Russ Sam Date of :1998 (Home) Address: [address] [place] [address] Payer ID:[id number] (NAIC) Type:POS Address: [facility] [id number] [place] [id number]
--- OUTSIDE RECORDS SUMMARY | 2025-06-14 13:07 | XMS_ITS | Clinical Summary ---
Author Organization [facility] Address [address] [place] [id number] Care Team Providers Care Smoke Room Operator Name Role Phone Liborio Shea NP Primary Care Provider Antonio Ortiz MD Unavailable [phone] Myriam Whaley [facility] Unavailable [phone] Sal Ferraro MD Unavailable Allergies Active Allergy [...] therapy Assessment & Plan (12/29/2021 1:12 PM ELECTRICAL ENGINEERING TECHNOLOGIST): Patient diagnosed with hyperthyroidism 03/2021 most likely [...] to make an appointment with high school history teacher - follow-up in 4 weeks Assessment & Plan (12/01/2021 8:36 AM ELECTRICAL ENGINEERING TECHNOLOGIST): Patient diagnosed with hyperthyroidism 03/2021 most likely [...] to make an appointment with high school history teacher - follow-up in 4 weeks Hyperthyroidism [...] (09/16/2020): Added automatically from request for surgery [id number] Gestational hypertension affecting second pregna ncy 09/13/2019 [...] Hx Other Medical knee surgery; C omments: [facility] 04/30/2016 -; Laterality: right Seasonal allergies Allergies, se asonal; Comments: [facility] 04/30/2016 - Allergic ACL graft tear, subsequent encounter 09/16/2020 Added automatically from request for surgery [id number] Presence of intrauterine con traceptive device 02/08/2017 [...] on file Legal 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 Gender Identity Female 05/20/2021 11:53 AM CDT [...] this topic Medical Devices Implanted Type Area Community Development Director Device Identifier Shelf Expiration Date Model / Serial / Lot Allosync Dimineralized Bone Matrix Implanted:Qty: 1 on 10/29/2020 by Terry Hickey MD at [facility] Right: Knee [employer] [id number] 03/20/2022 / [id number] / [id number] Description:8 mL CB DBM past e Allosync Demineralized Bone Matrix Ref Abs-2014-10 Implanted:Qty: 1 on 10/29/2020 by Terry Hickey MD at [facility] Right: Knee [employer] [id number] 05/20/2022 / [id number] / [id number] Description:allosync CB DBM putty Procedures Procedure Name [...] RNA Detection and Quantitation by Real-Time Reverse Survey Compiler-PCR (RT-PCR). Current interpretive data was last revised on 2016. Mariola Yoder MD LAB BLOOD ORDERAB LES Final Result CDR HISTORICAL RESULTS from Last 3 Months or Most Recently Relevant to Health Maintenance Insurance [facility] CHOICE PLUS [facility] HMO/PPO Address: [address] [place] [address] [facility] CHOICE [facility]US [facility] HMO/PPO Address: [address] [place] [address] [facility] CHOICE PLUS [facility] HMO/PPO Address: [address] [address] [place] [address] IDPA Advance Directives For more information, please contact: [phone] Documents on File Type Date Recorded Patient Tape Transferrer Expl anation ADVANCE DIRECTIVE 10/29/2020 11:53 AM Care Teams Smoke Room Operator Relationship Specialty [place] [id number] [address] [facility] [address] [place] [address] PCP - General Family Medicine 09/05/19 [place] [address] [address] [facility] [address] [place] [address] Consulting Physician Endocrinology 12/29/21 Myriam Whaley CNM [address] [address] [facility] [address] [place] [address] Nurse Practitioner Obstetrics and Gynecology 12/29/21 [place] [address] [address] [facility] [address], [place] [address] Consulting Physician Internal Medicine 01/19/22
[2025-06-14 13:46] VITALS: BP 134/84; PULSE 67
[2025-06-14 13:47] VITALS: BP 136/83; PULSE 92
[2025-06-14 13:48] VITALS: BP 125/89; PULSE 79
[2025-06-14 14:04] VITALS: BP 115/82; PULSE 82; RESP 14; O2SAT 99
== END 2025-06-14 14:45 | disposition home or self-care (01) ==
PROVIDERS: Emergency Provider Physician Assistant
DX: N93.9 Abnormal uterine and vaginal bleeding, unspecified (principal); D64.9 Anemia, unspecified; Z87.891 Personal history of nicotine dependence
CPT/HCPCS: 36415; 80053; 81001; 81025; 85025; 85610; 85730; 86850; 86900; 86901; 99283